=== PATIENT | female | born 1945 | race Caucasian/White ===

== ENCOUNTER → 2020-10-07 | Outpatient (CLI) | payer MEDICARE, BC ==
--- NOTE | 2020-10-08 07:41 | US ---
EXAMINATION TYPE: US carotid duplex BILAT DATE OF EXAM: 10/07/2020 COMPARISON: NONE CLINICAL HISTORY: 75-year-old female Occlusion and stenosis of left artery I65.22. EXAM MEASUREMENTS: RIGHT: Peak Systolic Velocity (PSV) cm/sec ----- Right CCA: 116 ----- Right ICA: 124 ----- Right ECA: 141 ICA/CCA ratio: 1.07 RIGHT: End Diastole cm/sec ----- Right CCA: 9.1 ----- Right ICA: 13.0 ----- Right ECA: 0.0 LEFT: Peak Systolic Velocity (PSV) cm/sec ----- Left CCA: 141 ----- Left ICA: 157 ----- Left ECA: 220 ICA/CCA ratio: 1.11 LEFT: End Diastole cm/sec ----- Left CCA: 9.5 ----- Left ICA: 14.8 ----- Left ECA: 0.0 VERTEBRALS (direction of flow): Right Vertebral: Antegrade Left Vertebral: Antegrade Rhythm: Normal Spanish Language Lecturer notes: Moderate plaque bilateral bifurcations. Increased velocities right ECA, left ICA, left ECA IMPRESSION: 1. Mildly increased velocities within the left ICA could reflect a moderate (50-69%) stenosis versus turbulent flow. The latter is favored given normal end-diastolic velocity and ICA/CCA ratio. 2. Elevated velocities left ECA suggesting an underlying stenosis. NASCET criteria was used in interpretation of this exam? Criteria for Assigning % of Stenosis / Diameter reduction (Estimation based on the indirect measurements of the internal carotid artery velocities (ICA PSV). 1. Normal (no stenosis)=ICA PSV < 125 cm/s: ratio < 2.0: ICA EDV<40 cm/s. 2. Less than 50% stenosis=ICA PSV < 125 cm/s: ratio < 2.0: ICA EDV<40 cm/s. 3. 50 to 69% stenosis=ICA PSV of 125 to 230 cm/s: ration 2.0 ? 4.0: ICA EDV 40-100 cm/s. 4. Greater than 70% stenosis to near occlusion= ICA PSV > 230 cm/s: ratio > 4.0: ICA EDV > 100 cm/s. 5. Near occlusion= ICA PSV velocities may be low or undetectable: variable ratio and ICA EDV. 6. Total occlusion=unable to detect flow.
== END | disposition home or self-care (01) ==
LOC: RADUSWWP 16:43
PROVIDERS: ATTEND Family Medicine
DX: I65.22 Occlusion and stenosis of left carotid artery (principal)
CPT/HCPCS: 93880

== ENCOUNTER 2021-06-07 22:07 | Inpatient (IN) | payer BC, MEDICARE ==
[2021-06-07] MEDS ORDERED: DEXTROSE 5% IN WATER 50 ML BAG ONE (22:15)
[2021-06-07] MEDS ORDERED: ATROPINE SULFATE 0.1 MG/ML 10ML SYRINGE ONE (22:15)
[2021-06-07] MEDS ORDERED: AMIODARONE 50 MG/ML 3 ML VIAL IV ONE (22:15)
[2021-06-07] MEDS ORDERED: CALCIUM CHLORIDE 100 MG/ML 10 ML SYRINGE ONE (22:15)
[2021-06-07] MEDS ORDERED: SODIUM BICARB 8.4% 50 ML SYR (1 MEQ/ML) ONE (22:15)
[2021-06-07] MEDS ORDERED: EPINEPHrine 10 ML SYRINGE (0.1 MG/ML) ONE (22:15)
[2021-06-07 22:20] LABS: Glucose,Whole Blood 493 mg/dL (75-99)
[2021-06-07] MEDS ORDERED: SODIUM CHLORIDE 0.9% 1,000 ML IV STA (22:30)
[2021-06-07] MEDS ORDERED: IPRATROPIUM-ALBUTEROL 3 ML NEB INHALATION STA (22:31)
--- NOTE | 2021-06-07 22:32 | ED ---
SOB HPI - General Chief Complaint: Shortness of Breath Stated Complaint: CLARICE Time Seen by Provider: 06/07/21 22:30 Source: EMS, RN notes reviewed, old records reviewed Mode of arrival: EMS Limitations: altered mental status, physical limitation - History of Present Illness Initial Comments: This is a 75-year-old female DF for evaluation. Patient comes in unresponsive unable to provide history. History obtained from EMS. EMS states patient was found to be severely short of breath upon reevaluation. Patient was speaking in one-word sentences and then had a cardiac arrest. Arrest was bradycardic and they brought patient to the emergency department. Here in the ER patient is pulseless with bradycardic PEA MD Complaint: shortness of breath, cough -: hour(s) Radiation: back Severity: moderate Severity scale (1-10): 4 Quality: aching Consistency: constant Improves With: nothing Worsens With: nothing Context: recent URI, recent illness Associated Symptoms: denies other symptoms Treatments Prior to Arrival: none - Related Data Home Medications Medication Instructions Recorded Confirmed Colesevelam [Welchol] 1,250 mg PO BID 10/13/13 06/07/21 Furosemide [Lasix] 40 mg PO DAILY 10/13/13 06/07/21 Insulin Glargine [Lantus] 50 units SQ DAILY 10/13/13 06/07/21 Cyanocobalamin [Vitamin B-12 1,000 mcg IM Q30D 09/28/15 06/07/21 Injection] Ergocalciferol (Vitamin D2) 1,250 mcg PO Q7D 06/07/21 06/07/21 [Drisdol (50,000 Iu)] Insulin Aspart [NovoLOG Flexpen] 20 unit SQ TID-W/MEALS 06/07/21 06/07/21 Allergies Allergy/AdvReac Type Severity Reaction Status Date / Time amlodipine besylate Allergy Unknown Verified 09/28/15 09:12 [From Lotrel] atorvastatin calcium Allergy Unknown Verified 09/28/15 09:12 [From Lipitor] benazepril HCl [From Lotrel] Allergy Unknown Verified 09/28/15 09:12 Beta-Blockers Allergy Unknown Verified 09/28/15 09:12 (Beta-Adrenergic Bloc betaxolol HCl [From Kerlone] Allergy Unknown Verified 09/28/15 09:12 cilostazol [From Pletal] Allergy Unknown Verified 09/28/15 09:12 enalapril maleate Allergy Unknown Verified 09/28/15 09:12 [From Vasotec] enalaprilat dihydrate Allergy Unknown Verified 09/28/15 09:12 [From Vasotec] ezetimibe [From Vytorin] Allergy Unknown Verified 09/28/15 09:12 fluticasone propionate Allergy Unknown Verified 09/28/15 09:12 [From Flonase] fluvastatin sodium Allergy Unknown Verified 09/28/15 09:12 [From Lescol] gabapentin [From Neurontin] Allergy Unknown Verified 09/28/15 09:12 guaifenesin Allergy Unknown Verified 09/28/15 09:12 irbesartan [From Avapro] Allergy Unknown Verified 09/28/15 09:12 levofloxacin [From Levaquin] Allergy Unknown Verified 09/28/15 09:12 niacin Allergy Unknown Verified 09/28/15 09:12 prazosin [Prazosin] Allergy Unknown Verified 09/28/15 09:12 pseudoephedrine Allergy Unknown Verified 09/28/15 09:12 simvastatin [From Vytorin] Allergy Unknown Verified 09/28/15 09:12 Sulfa (Sulfonamide Allergy Unknown Verified 09/28/15 09:12 Antibiotics) sulfamethoxazole Allergy Unknown Verified 09/28/15 09:12 [From Bactrim] trimethoprim [From Bactrim] Allergy Unknown Verified 09/28/15 09:12 Review of Systems ROS Statement: Those systems with pertinent positive or pertinent negative responses have been documented in the HPI. ROS Other: All systems not noted in ROS Statement are negative. Past Medical History Past Medical History: Coronary Artery Disease (CAD), CVA/TIA, Diabetes Mellitus, Hypertension History of Any Multi-Drug Resistant Organisms: None Reported Past Surgical History: Appendectomy, Section, Coronary Bypass/CABG, Tonsillectomy Additional Past Surgical History / Comment(s): carpal tunnel Past Psychological History: No Psychological Hx Reported Smoking Status: Unknown if ever smoked Past Alcohol Use History: None Reported Past Drug Use History: None Reported General Exam General appearance: alert, in no apparent distress Head exam: Present: atraumatic, normocephalic, normal inspection Eye exam: Present: normal appearance, PERRL, EOMI. Absent: scleral icterus, con junctival injection, periorbital swelling ENT exam: Present: normal exam, mucous membranes moist Neck exam: Present: normal inspection. Absent: tenderness, meningismus, lymphadenopathy Respiratory exam: Present: normal lung sounds bilaterally. Absent: respiratory distress, wheezes, rales, rhonchi, stridor Cardiovascular Exam: Present: regular rate, normal rhythm, normal heart sounds. Absent: systolic murmur, diastolic murmur, rubs, gallop, clicks GI/Abdominal exam: Present: soft, normal bowel sounds. Absent: distended, tenderness, guarding, rebound, rigid Extremities exam: Present: normal inspection, full ROM, normal capillary refill. Absent: tenderness, pedal edema, joint swelling, calf tenderness Back exam: Present: normal inspection Neurological exam: Present: alert, oriented X3, CN II-XII intact Psychiatric exam: Present: normal affect, normal mood Skin exam: Present: warm, dry, intact, normal color. Absent: rash Course Vital Signs 06/07/21 06/07/21 06/07/21 22:08 22:30 23:02 Pulse Rate 69 74 74 Respiratory 14 24 Rate Blood Pressure 72/53 127/57 104/58 O2 Sat by Pulse 92 L 85 L 85 L Oximetry 06/07/21 06/07/21 06/08/21 23:30 23:59 00:33 Pulse Rate 83 70 67 Respiratory 22 31 H 18 Rate Blood Pressure 172/80 113/55 107/52 O2 Sat by Pulse 93 L 91 L 91 L Oximetry 06/08/21 00:34 Pulse Rate 67 Respiratory Rate Blood Pressure O2 Sat by Pulse Oximetry - Reevaluation(s) Reevaluation #1: 06/08/21 00:38 Medical record is reviewed 06/08/21 00:38 Patient did have return of spontaneous circulation after about 15 minutes of ACLS protocol Reevaluation #2: 06/08/21 00:38 Patient very labile here in the ER significant fall with CHF with low oxygen despite ventilatory therapy Reevaluation #3: 06/08/21 00:38 Patient family informed results and questions answered - Consultations Consultation #1: Spoke with ICU regarding admission they are agreeable Consultation #2: spoke Consultation #3: Spoke with cardiology regarding cardiac arrests and EKG findings, there were Medical Decision Making - Medical Decision Making 75 female with hypoxic cardiac arrest secondary to CHF. Patient did have 10-15 minutes of ACS protocol here in the emergency department, patient does have spontaneous return of circulation here in the ER. Patient is currently no code. Patient will be admitted ICU for further evaluation management - Lab Data Result diagrams: 06/07/21 22:53 06/07/21 23:02 Lab Results 06/07/21 06/07/21 06/07/21 Range/Units 22:19 22:52 22:53 WBC 13.8 H (3.8-10.6) k/uL RBC 4.55 (3.80-5.40) m/uL Hgb 13.0 (11.4-16.0) gm/dL Hct 45.4 (34.0-46.0) % MCV 99.8 (80.0-100.0) fL MCH 28.5 (25.0-35.0) pg MCHC 28.5 L (31.0-37.0) g/dL RDW 13.3 (11.5-15.5) % Plt Count 169 (150-450) k/uL MPV 9.3 Neutrophils % 75 % Lymphocytes % 20 % Monocytes % 3 % Eosinophils % 0 % Basophils % 0 % Neutrophils # 10.3 H (1.3-7.7) k/uL Lymphocytes # 2.7 (1.0-4.8) k/uL Monocytes # 0.4 (0-1.0) k/uL Eosinophils # 0.0 (0-0.7) k/uL Basophils # 0.0 (0-0.2) k/uL Hypochromasia Marked PT (9.0-12.0) sec INR (<1.2) APTT (22.0-30.0) sec Sample Site Left Brachial ABG pH 7.17 L* (7.35-7.45) ABG pCO2 47 H (35-45) mmHg ABG pO2 64 L (83-108) mmHg ABG HCO3 17 L (21-25) mmol/L ABG Total CO2 19 (19-24) mmol/L ABG O2 Saturation 84.6 L (94-97) % ABG Base Excess -11.4 mmol/L Matthew Test Yes FiO2 100 % Sodium (137-145) mmol/L Potassium (3.5-5.1) mmol/L Chloride (98-107) mmol/L Carbon Dioxide (22-30) mmol/L Anion Gap mmol/L BUN (7-17) mg/dL Creatinine (0.52-1.04) mg/dL Est GFR (CKD-EPI)AfAm (>60 ml/min/1.73 sqM) Est GFR (CKD-EPI)NonAf (>60 ml/min/1.73 sqM) Glucose (74-99) mg/dL POC Glucose (mg/dL) 493 H (75-99) mg/dL POC Glu Chemical Technician ID Torsten Quispe Plasma Lactic Acid [place] (0.7-2.0) mmol/L Calcium (8.4-10.2) mg/dL Phosphorus (2.5-4.5) mg/dL Magnesium (1.6-2.3) mg/dL Total Bilirubin (0.2-1.3) mg/dL AST (14-36) U/L ALT (4-34) U/L Alkaline Phosphatase (38-126) U/L Troponin I (0.000-0.034) ng/mL NT-Pro-B Natriuret Pep pg/mL Total Protein (6.3-8.2) g/dL Albumin (3.5-5.0) g/dL 06/07/21 06/07/21 06/07/21 Range/Units 22:53 23:02 23:02 WBC (3.8-10.6) k/uL RBC (3.80-5.40) m/uL Hgb (11.4-16.0) gm/dL Hct (34.0-46.0) % MCV (80.0-100.0) fL MCH (25.0-35.0) pg MCHC (31.0-37.0) g/dL RDW (11.5-15.5) % Plt Count (150-450) k/uL MPV Neutrophils % % Lymphocytes % % Monocytes % % Eosinophils % % Basophils % % Neutrophils # (1.3-7.7) k/uL Lymphocytes # (1.0-4.8) k/uL Monocytes # (0-1.0) k/uL Eosinophils # (0-0.7) k/uL Basophils # (0-0.2) k/uL Hypochromasia PT 13.7 H (9.0-12.0) sec INR 1.3 H (<1.2) APTT 25.8 (22.0-30.0) sec Sample Site ABG pH (7.35-7.45) ABG pCO2 (35-45) mmHg ABG pO2 (83-108) mmHg ABG HCO3 (21-25) mmol/L ABG Total CO2 (19-24) mmol/L ABG O2 Saturation (94-97) % ABG Base Excess mmol/L Matthew Test FiO2 % Sodium 139 (137-145) mmol/L Potassium 5.7 H (3.5-5.1) mmol/L Chloride 102 (98-107) mmol/L Carbon Dioxide 16 L (22-30) mmol/L Anion Gap 21 mmol/L BUN 21 H (7-17) mg/dL Creatinine 1.23 H (0.52-1.04) mg/dL Est GFR (CKD-EPI)AfAm 49 (>60 ml/min/1.73 sqM) Est GFR (CKD-EPI)NonAf 43 (>60 ml/min/1.73 sqM) Glucose 479 H (74-99) mg/dL POC Glucose (mg/dL) (75-99) mg/dL POC Glu Chemical Technician ID Plasma Lactic Acid [place] (0.7-2.0) mmol/L Calcium 10.8 H (8.4-10.2) mg/dL Phosphorus 9.6 H* (2.5-4.5) mg/dL Magnesium 2.7 H (1.6-2.3) mg/dL Total Bilirubin 0.7 (0.2-1.3) mg/dL AST 172 H (14-36) U/L ALT 99 H (4-34) U/L Alkaline Phosphatase 73 (38-126) U/L Troponin I 0.459 H* (0.000-0.034) ng/mL NT-Pro-B Natriuret Pep pg/mL Total Protein 5.6 L (6.3-8.2) g/dL Albumin 3.0 L (3.5-5.0) g/dL 06/07/21 06/07/21 Range/Units 23:02 23:02 WBC (3.8-10.6) k/uL RBC (3.80-5.40) m/uL Hgb (11.4-16.0) gm/dL Hct (34.0-46.0) % MCV (80.0-100.0) fL MCH (25.0-35.0) pg MCHC (31.0-37.0) g/dL RDW (11.5-15.5) % Plt Count (150-450) k/uL MPV Neutrophils % % Lymphocytes % % Monocytes % % Eosinophils % % Basophils % % Neutrophils # (1.3-7.7) k/uL Lymphocytes # (1.0-4.8) k/uL Monocytes # (0-1.0) k/uL Eosinophils # (0-0.7) k/uL Basophils # (0-0.2) k/uL Hypochromasia PT (9.0-12.0) sec INR (<1.2) APTT (22.0-30.0) sec Sample Site ABG pH (7.35-7.45) ABG pCO2 (35-45) mmHg ABG pO2 (83-108) mmHg ABG HCO3 (21-25) mmol/L ABG Total CO2 (19-24) mmol/L ABG O2 Saturation (94-97) % ABG Base Excess mmol/L Matthew Test FiO2 % Sodium (137-145) mmol/L Potassium (3.5-5.1) mmol/L Chloride (98-107) mmol/L Carbon Dioxide (22-30) mmol/L Anion Gap mmol/L BUN (7-17) mg/dL Creatinine (0.52-1.04) mg/dL Est GFR (CKD-EPI)AfAm (>60 ml/min/1.73 sqM) Est GFR (CKD-EPI)NonAf (>60 ml/min/1.73 sqM) Glucose (74-99) mg/dL POC Glucose (mg/dL) (75-99) mg/dL POC Glu Chemical Technician ID Plasma Lactic Acid [place] 19.4 H* (0.7-2.0) mmol/L Calcium (8.4-10.2) mg/dL Phosphorus (2.5-4.5) mg/dL Magnesium (1.6-2.3) mg/dL Total Bilirubin (0.2-1.3) mg/dL AST (14-36) U/L ALT (4-34) U/L Alkaline Phosphatase (38-126) U/L Troponin I (0.000-0.034) ng/mL NT-Pro-B Natriuret Pep 4900 pg/mL Total Protein (6.3-8.2) g/dL Albumin (3.5-5.0) g/dL - EKG Data -: EKG Interpreted by Me - Radiology Data Radiology results: report reviewed (Chest x-ray shows significant CHF), image reviewed Critical Care Time Critical Care Time: Yes Total Critical Care Time: 65 Disposition Clinical Impression: Congestive heart failure, Acute pulmonary edema, DKA (diabetic ketoacidosis), Hyperglycemia, Hyperkalemia, Acute respiratory distress syndrome in adult, Hypoxia Disposition: ADMITTED IP TO THIS [facility] Condition: Critical Is patient prescribed a controlled substance at d/c from ED?: No
[2021-06-07] MEDS ORDERED: HEPARIN SODIUM 1,000 UN/ML (10ML VL) IV ONE (22:48)
[2021-06-07] MEDS ORDERED: NITROGLYCERIN SL TABS 0.4 MG TAB SUBLINGUAL PRN (22:48)
--- NOTE | 2021-06-07 22:49 | XR ---
EXAMINATION TYPE: XR chest 1V portable DATE OF EXAM: 06/07/2021 COMPARISON: 09/28/2015 HISTORY: Respiratory failure TECHNIQUE: Single view FINDINGS: Endotracheal tube is 3.5 cm from the justin. There is moderately severe pulmonary airspace edema. There are sternal wires. Heart is enlarged. IMPRESSION: Pulmonary edema and cardiomegaly consistent with heart failure which is a change compared to old exam.
[2021-06-07 22:54] LABS: ABG Base Excess -11.4 mmol/L; ABG HCO3 17 mmol/L (21-25); ABG Oxygen Saturation 84.6 % (94-97); ABG PCO2 47 mmHg (35-45); ABG PO2 64 mmHg (83-108); ABG TCO2 19 mmol/L (19-24); Allen Test Performed? Yes
[2021-06-07 23:02] LABS: ABG PH 7.17 (7.35-7.45)
[2021-06-07 23:09] LABS: Basophils % (A) 0 %; Eosinophils % (A) 0 %; HCT 45.4 % (34.0-46.0); Hypochromasia Marked; Lymphocytes # (A) 2.7 k/uL (1.0-4.8); Lymphocytes % (A) 20 %; MCH 28.5 pg (25.0-35.0); MCHC 28.5 g/dL (31.0-37.0); MCV 99.8 fL (80.0-100.0); Mean Platelet Volume 9.3; Monocytes # (A) 0.4 k/uL (0-1.0); Monocytes % (A) 3 %; Neutrophils # (A) 10.3 k/uL (1.3-7.7); Neutrophils % (A) 75 %; Platelet Count 169 k/uL (150-450); RBC 4.55 m/uL (3.80-5.40); RDW 13.3 % (11.5-15.5); WBC 13.8 k/uL (3.8-10.6)
[2021-06-07] MEDS ORDERED: MIDAZOLAM 1 MG/ML 5 ML VIAL IV STA (23:09)
[2021-06-07] MEDS ORDERED: MIDAZOLAM HCL 50 MG in SODIUM CHLORIDE 0.9% 40 ML IV SCH (23:15)
[2021-06-07] MEDS: HEPARIN SOD,PORK IN 0.45% NACL 25,000 UNIT in 0.45% NACL 1 250ML.BAG IV SCH (23:19)
--- NOTE | 2021-06-07 23:36 | XR ---
EXAMINATION TYPE: XR chest 1V confirm line [facility] DATE OF EXAM: 06/07/2021 COMPARISON: Today HISTORY: Check tube placement TECHNIQUE: FINDINGS: Endotracheal tube is 4 cm from the justin. There is moderate pulmonary edema. There is naso gastric tube in the stomach. There are sternal wires. IMPRESSION: Moderately severe pulmonary edema without change.
[2021-06-07 23:53] LABS: Potassium 5.7 mmol/L (3.5-5.1)
[2021-06-07 23:54] LABS: Calcium 10.8 mg/dL (8.4-10.2); Magnesium 2.7 mg/dL (1.6-2.3); Total Bilirubin 0.7 mg/dL (0.2-1.3); Total Protein 5.6 g/dL (6.3-8.2)
[2021-06-08] MEDS ORDERED: NITROGLYCERIN OINT 1 INCH/GM PACKET TOPICAL SCH
[2021-06-08] MEDS ORDERED: NALOXONE 0.4 MG/ML 1 ML VIAL IV PRN (00:02)
[2021-06-08] MEDS ORDERED: INSULIN REGULAR 100 UNIT/ML VIAL (IV) IV ONE (00:02)
[2021-06-08 00:09] LABS: Phosphorus 9.6 mg/dL (2.5-4.5)
[2021-06-08 00:14] LABS: INR 1.3 (<1.2); Partial Thromboplastin Time 25.8 sec (22.0-30.0); Prothrombin Time 13.7 sec (9.0-12.0)
[2021-06-08 01:42] LABS: Glucose,Whole Blood 445 mg/dL (75-99)
[2021-06-08] MEDS ORDERED: propofoL 100 ML IV ONE (01:58)
[2021-06-08 02:00] LABS: Glucose,Whole Blood 448 mg/dL (75-99)
[2021-06-08] MEDS: LACTATED RINGERS 1,000 ML IV SCH ×16 (02:00→09:40)
[2021-06-08] MEDS ORDERED: ACETAMINOPHEN TAB 325 MG TAB PO PRN (02:22)
[2021-06-08 04:33] LABS: Glucose,Whole Blood 485 mg/dL (75-99)
[2021-06-08] MEDS: INSULIN ASPART (NovoLOG) 100 UNIT/ML VIAL SQ SCH ×10 (04:57→22:26)
[2021-06-08 05:27] LABS: Calcium 8.4 mg/dL (8.4-10.2); Potassium 4.7 mmol/L (3.5-5.1)
[2021-06-08 05:59] LABS: ABG Base Excess -2.7 mmol/L; ABG HCO3 21 mmol/L (21-25); ABG Oxygen Saturation 99.6 % (94-97); ABG PCO2 30 mmHg (35-45); ABG PH 7.46 (7.35-7.45); ABG PO2 193 mmHg (83-108); ABG TCO2 22 mmol/L (19-24); Allen Test Performed? Yes
[2021-06-08 06:08] LABS: Glucose,Whole Blood 476 mg/dL (75-99)
[2021-06-08] MEDS ORDERED: IPRATROPIUM-ALBUTEROL 3 ML NEB INHALATION SCH (08:00)
[2021-06-08] MEDS ORDERED: SODIUM CHLORIDE 0.9% 1,000 ML IV ONE (08:11)
[2021-06-08] MEDS: IPRATROPIUM-ALBUTEROL 3 ML NEB INHALATION SCH ×4 (08:29→19:26)
--- NOTE | 2021-06-08 08:31 | XR ---
EXAMINATION TYPE: XR chest 1V portable DATE OF EXAM: 06/08/2021 COMPARISON: 06/07/2021 INDICATION: Tube placement TECHNIQUE: Single frontal view of the chest is obtained. FINDINGS: The heart size is normal. The pulmonary vasculature is somewhat prominent. Views increased lung markings are present. This has improved from comparison. Small right and minimal left pleural effusion may remain present. Endotracheal tube tip is above the justin. Nasogastric tube transverses the thorax. IMPRESSION: 1. Improving bilateral lung infiltrates. 2. Small bilateral pleural effusions. 3. Lines and catheters discussed above.
[2021-06-08 08:50] LABS: Glucose,Whole Blood 419 mg/dL (75-99)
[2021-06-08] MEDS: SODIUM CHLORIDE 0.9% 1,000 ML IV SCH ×2 (08:51→20:22)
[2021-06-08] MEDS: ASPIRIN 325 MG TAB PO SCH (08:51)
[2021-06-08] MEDS: PANTOPRAZOLE 40 MG/10 ML VIAL IV SCH (08:51)
--- NOTE | 2021-06-08 08:54 | P.CRDCN ---
History of Present Illness History of present illness: HISTORY OF PRESENTING ILLNESS Patient is a 75-year-old female with a history of diabetes mellitus type 1, coronary artery disease status post CABG 2000, hypertension, hyperlipidemia. Patient currently intubated and sedated and history is supplied the chart. Apparently patient was extremely short of breath speaking one-word sentences and then had a cardiac arrest and became bradycardic. By the time patient came to emergency department patient was still noted to be PEA and apparently another 15 minutes of CPR was performed with eventual ROSC. Patient has been on a heparin drip in ICU as well as propofol and otherwise remains on ventilator with FiO2 55% and a PEEP of 10. There is no report of any chest pain or pressure noted before and appears mainly shortness breath. Initial EKG shows diffuse ST depressions in the lateral leads. Initial blood work shows white blood cell co unt 13.8, hemoglobin 13.0, INR 1.3, potassium 5.7, creatinine 1.2, lactic acid 19, AST 172, ALT 99, calcium 10.8, troponin 0.45, proBNP 4900, repeat lactic acid 4.9, troponin 5.8. Family made patient DO NOT RESUSCITATE currently. REVIEW OF SYSTEMS At the time of my exam: Unable to assess secondary to patient intubated and sedated PHYSICAL EXAMINATION Vital signs reviewed. CONSTITUTIONAL: No apparent distress, ill appearing, intubated and sedated HEENT: Head is normocephalic. Pupils are equal, round. Sclerae anicteric. Mucous membranes of the mouth are moist. No JVD. No carotid bruit. +ETT CHEST EXAMINATION: Lungs are clear to auscultation. No chest wall tenderness is noted on palpation or with deep breathing. HEART EXAMINATION: Regular rate and rhythm. S1, S2 heard. No murmurs, gallops or rub. ABDOMEN: Soft, nontender. Positive bowel sounds. EXTREMITIES: 2+ peripheral pulses, no lower extremity edema and no calf tenderness. NEUROLOGIC EXAMINATION: Patient is sedated ASSESSMENT 1. Cardiac arrest of unclear etiology. Possible type I ID versus primary respiratory etiology. 15 minutes of downtime and emergency department plus time and EMS 2. Non-STEMI unclear type I versus type II mechanism 3. Coronary artery disease with history of CABG 4. Diabetes mellitus type 1 with uncontrolled glucose 5. Altered mental status, rule out anoxic brain injury 6. Bradycardia likely related to cardiac arrest, currently improved PLAN Patient had a cardiac arrest of unclear etiology. Patient with prolonged downtime however currently appears somewhat stabilized. Continue with aspirin, heparin. No beta amy given bradycardia and hypotension. Continue supportive care. Monitor for any neurologic recovery however prognosis guarded given prolonged downtime. Past Medical History Past Medical History: Coronary Artery Disease (CAD), CVA/TIA, Diabetes Mellitus, Hypertension History of Any Multi-Drug Resistant Organisms: None Reported Past Surgical History: Appendectomy, Section, Coronary Bypass/CABG, Tonsillectomy Additional Past Surgical History / Comment(s): carpal tunnel Past Psychological History: No Psychological Hx Reported Smoking Status: Unknown if ever smoked Past Alcohol Use History: None Reported Past Drug Use History: None Reported Medications and Allergies Home Medications Medication Instructions Recorded Confirmed Type Colesevelam [Welchol] 1,250 mg PO BID 10/13/13 06/07/21 History Furosemide [Lasix] 40 mg PO DAILY 10/13/13 06/07/21 History Insulin Glargine [Lantus] 50 units SQ DAILY 10/13/13 06/07/21 History Cyanocobalamin [Vitamin B-12 1,000 mcg IM Q30D 09/28/15 06/07/21 History Injection] Ergocalciferol (Vitamin D2) 1,250 mcg PO Q7D 06/07/21 06/07/21 History [Drisdol (50,000 Iu)] Insulin Aspart [NovoLOG Flexpen] 20 unit SQ TID-W/MEALS 06/07/21 06/07/21 History amLODIPine [Norvasc] 5 mg PO DAILY 06/08/21 06/08/21 History Allergies Allergy/AdvReac Type Severity Reaction Status Date / Time amlodipine besylate Allergy Unknown Verified 06/08/21 08:30 [From Lotrel] atorvastatin calcium Allergy Unknown Verified 06/08/21 08:30 [From Lipitor] benazepril HCl [From Lotrel] Allergy Unknown Verified 06/08/21 08:30 Beta-Blockers Allergy Unknown Verified 06/08/21 08:30 (Beta-Adrenergic Bloc betaxolol HCl [From Kerlone] Allergy Unknown Verified 06/08/21 08:30 chlorpheniramine Allergy Unknown Verified 06/08/21 08:34 [From DURAHIST] cilostazol [From Pletal] Allergy Unknown Verified 06/08/21 08:30 enalapril maleate Allergy Unknown Verified 06/08/21 08:30 [From Vasotec] enalaprilat dihydrate Allergy Unknown Verified 06/08/21 08:30 [From Vasotec] ezetimibe [From Vytorin] Allergy Unknown Verified 06/08/21 08:30 fluticasone propionate Allergy Unknown Verified 06/08/21 08:30 [From Flonase] fluvastatin sodium Allergy Unknown Verified 06/08/21 08:30 [From Lescol] gabapentin [From Neurontin] Allergy Unknown Verified 06/08/21 08:30 guaifenesin Allergy Unknown Verified 06/08/21 08:30 irbesartan [From Avapro] Allergy Unknown Verified 06/08/21 08:30 levofloxacin [From Levaquin] Allergy Unknown Verified 06/08/21 08:30 metoprolol [From Lopressor] Allergy Unknown Verified 06/08/21 08:34 niacin Allergy Unknown Verified 06/08/21 08:30 nystatin Allergy Unknown Verified 06/08/21 08:34 prazosin [Prazosin] Allergy Unknown Verified 06/08/21 08:30 pseudoephedrine Allergy Unknown Verified 06/08/21 08:30 scopolamine [From DURAHIST] Allergy Unknown Verified 06/08/21 08:34 simvastatin [From Vytorin] Allergy Unknown Verified 06/08/21 08:30 Sulfa (Sulfonamide Allergy Unknown Verified 06/08/21 08:30 Antibiotics) sulfamethoxazole Allergy Unknown Verified 06/08/21 08:30 [From Bactrim] trimethoprim [From Bactrim] Allergy Unknown Verified 06/08/21 08:30 Physical Exam Vitals: Vital Signs Temp Pulse Resp BP Pulse Ox 06/08/21 08:16 64 06/08/21 07:59 60 06/08/21 07:00 58 L 26 H 87/44 98 06/08/21 06:45 98.9 F 61 0 L 90/47 98 06/08/21 06:30 61 6 L 107/47 98 06/08/21 06:15 59 L 26 H 110/49 97 06/08/21 06:00 62 26 H 110/52 100 06/08/21 05:45 61 26 H 90/45 100 06/08/21 05:30 54 L 26 H 73/38 99 06/08/21 05:15 50 L 26 H 74/38 100 06/08/21 05:00 98.9 F 51 L 26 H 74/38 99 06/08/21 04:45 53 L 26 H 77/40 99 06/08/21 04:40 52 L 26 H 77/40 99 06/08/21 04:30 51 L 26 H 75/41 99 06/08/21 04:20 55 L 26 H 78/41 99 06/08/21 04:10 56 L 262 H 81/39 99 06/08/21 04:00 56 L 26 H 80/45 99 06/08/21 03:50 56 L 26 H 80/45 99 06/08/21 03:40 58 L 26 H 84/44 99 06/08/21 03:30 59 L 26 H 75/39 99 06/08/21 03:20 58 L 26 H 75/39 99 06/08/21 03:10 56 L 26 H 68/36 100 06/08/21 03:00 55 L 26 H 97/46 99 06/08/21 02:50 59 L 26 H 97/46 99 06/08/21 02:40 60 26 H 97/46 100 06/08/21 02:30 62 26 H 97/46 100 06/08/21 02:20 65 26 H 97/46 99 06/08/21 02:10 68 26 H 97/46 95 06/08/21 02:00 70 26 H 06/08/21 01:58 68 31 H 06/08/21 01:00 68 22 123/74 95 06/08/21 00:50 63 06/08/21 00:34 67 06/08/21 00:33 67 18 107/52 91 L 06/07/21 23:59 70 31 H 113/55 91 L 06/07/21 23:30 83 22 172/80 93 L 06/07/21 23:02 74 24 104/58 85 L 06/07/21 22:30 74 127/57 85 L 06/07/21 22:08 69 14 72/53 92 L Intake and Output 06/07/21 06/08/21 06/08/21 22:59 06:59 14:59 Intake Total 2003.343 Output Total 60 10 Balance 1944.343 -10 Intake: Intake, IV Titration 2003.343 Amount Lactated Ringers 1,000 ml 2000 @ 999 mls/hr IV .Q1H1M [facility] Rx#:[id number] propofoL 1,000 mg In 4.343 Empty Bag 1 bag @ 5 MCG/ KG/MIN 1.551 mls/hr IV . Q24H [facility] Rx#:[id number] Output: Urine 60 10 Uretheral ([place]) 0 Other: Voiding Method Indwelling Catheter Weight 51.71 kg 60.6 kg Results 06/07/21 22:53 06/08/21 04:59 Cardiac Enzymes 06/07/21 06/07/21 06/08/21 Range/Units 22:53 23:02 04:48 AST 172 H (14-36) U/L Troponin I 0.459 H* 5.880 H* (0.000-0.034) ng/mL Coagulation 06/07/21 06/08/21 Range/Units 23:02 04:48 PT 13.7 H (9.0-12.0) sec APTT 25.8 44.4 H (22.0-30.0) sec CBC 06/07/21 Range/Units 22:53 WBC 13.8 H (3.8-10.6) k/uL RBC 4.55 (3.80-5.40) m/uL Hgb 13.0 (11.4-16.0) gm/dL Hct 45.4 (34.0-46.0) % Plt Count 169 (150-450) k/uL Comprehensive Metabolic Panel 06/07/21 06/08/21 Range/Units 23:02 04:59 Sodium 139 132 L (137-145) mmol/L Potassium 5.7 H 4.7 (3.5-5.1) mmol/L Chloride 102 104 (98-107) mmol/L Carbon Dioxide 16 L 20 L (22-30) mmol/L BUN 21 H 26 H (7-17) mg/dL Creatinine 1.23 H 1.05 H (0.52-1.04) mg/dL Glucose 479 H 476 H (74-99) mg/dL Calcium 10.8 H 8.4 (8.4-10.2) mg/dL AST 172 H (14-36) U/L ALT 99 H (4-34) U/L Alkaline Phosphatase 73 (38-126) U/L Total Protein 5.6 L (6.3-8.2) g/dL Albumin 3.0 L (3.5-5.0) g/dL Current Medications Generic Name Dose Route Start Last Admin Trade Name Freq PRN Reason Stop Dose Admin Albuterol/Ipratropium 3 ml 06/08/21 08:00 06/08/21 08:29 Ipratropium-Albuterol 3 Ml Neb INHALATION Not Given RT-Q4H [facility] Aspirin 325 mg 06/08/21 09:00 Aspirin 325 Mg Tab PO DAILY [facility] Heparin Sodium/Sodium Chloride 250 mls @ 6.205 mls/hr 06/07/21 23:00 06/07/21 23:19 25,000 unit/ Sodium Chloride IV 12 units/kg/hr .Q24H [facility] 6.205 mls/hr Administration Protocol 12 UNITS/KG/HR Propofol 1,000 mg/ IV Solution 100 mls @ 1.551 mls/hr 06/08/21 03:00 06/08/21 06:18 IV 20 mcg/kg/min .Q24H [facility] 6.205 mls/hr Titration Protocol 5 MCG/KG/MIN Lactated Ringer's 1,000 mls @ 999 mls/hr 06/08/21 02:45 06/08/21 08:33 Lactated Ringers IV 999 mls/hr .Q1H1M [facility] Administration Lactated Ringer's 1,000 mls @ 999 mls/hr 06/08/21 05:15 06/08/21 08:34 Lactated Ringers IV Not Given .Q1H1M [facility] Sodium Chloride 1,000 mls @ 999 mls/hr 06/08/21 08:11 Saline 0.9% IV 06/08/21 09:11 .Q1H1M ONE Sodium Chloride 1,000 mls @ 75 mls/hr 06/08/21 08:15 Saline 0.9% IV .[id number] [facility] Insulin Aspart 0 unit 06/08/21 04:00 06/08/21 06:09 Insulin Aspart (Novolog) 100 Unit/Ml Vial SQ 8 unit Q2HR [facility] Administration Protocol Morphine Sulfate 4 mg 06/08/21 00:02 Morphine Sulfate 4 Mg/Ml Syringe IV Q4HR PRN Pain Scale 8 to 10 Naloxone HCl 0.2 mg 06/08/21 00:02 Naloxone 0.4 Mg/Ml 1 Ml Vial IV Q2M PRN Opioid Reversal Pantoprazole Sodium 40 mg 06/08/21 09:00 Pantoprazole 40 Mg/10 Ml Vial IV DAILY [facility] Intake and Output 06/07/21 06/08/21 06/08/21 22:59 06:59 14:59 Intake Total 2003.343 Output Total 60 10 Balance 1944.343 -10 Intake: Intake, IV Titration 2003.343 Amount Lactated Ringers 1,000 ml 2000 @ 999 mls/hr IV .Q1H1M [facility] Rx#:[id number] propofoL 1,000 mg In 4.343 Empty Bag 1 bag @ 5 MCG/ KG/MIN 1.551 mls/hr IV . Q24H [facility] Rx#:[id number] Output: Urine 60 10 Uretheral ([place]) 0 Other: Voiding Method Indwelling Catheter Weight 51.71 kg 60.6 kg 06/07/21 22:53 06/08/21 04:59
[2021-06-08 10:01] LABS: Glucose,Whole Blood 364 mg/dL (75-99)
--- NOTE | 2021-06-08 10:10 | P.CNPUL ---
History of Present Illness Consult date: 06/08/21 Requesting physician: Sharon Harris Reason for consult: dyspnea, hypoxemia, abnormal CXR/CT Chief complaint: Cardiopulmonary arrest. History of present illness: Pulmonary consult dated 06/08/2021. 75-year-old female who apparently was brought into the emergency room by EMS. The patient had mental status changes, with profoundly short of breath, and a chest x-ray which showed nearly complete white out of both lungs, and had severe bradycardia. The patient subsequently had a cardiac arrest in the ER. He was intubated in the ER, and she had about a 10 minute or so resuscitation. She apparently had pulseless electrical activity in the emergency room, as well as bradycardia. I did speak to the ER physician last night. Initially, the patient was a DO NOT RESUSCITATE patient. Apparently after speaking to the daughter, today, the nurse stated that the daughter wanted the patient to be a full code. I did speak to the daughter on the phone, who spoke to her brother, and her father, and the patient was made a DO NOT RESUSCITATE. The patient has a history of diabetes, hyperlipidemia, CAD, CVA, hypertension, and previous bypass surgery. The patient is currently on the ventilator. She is on volume assist control mode, rate 26, tidal volume 400, FiO2 60%, EPAP of 10. Blood gases show pO2 of 193, pCO2 of 30, and a pH is 7.46. These blood gases were done on 100%. The patient is on propofol at 20 mcg/kg/m, and heparin via weightbased protocol. The patient is also getting saline at 75 mL an hour. Laboratory data includes a white count 13.8, hemoglobin 13, hematocrit 45.4, and platelet count 169,000. PTT is 44.4. Sodium 132, potassium 4.7, chlorides 104, CO2 20, anion gap 8, BUN 26, and creatinine 1.05. Initial glucose was 476. The lactic acid went from 19.4 down to 4.5. The phosphorus was 9.6, the repeat was 5.2. N-terminal proBNP was 4900. Troponins were 0.459 and 5.880. AST was 172. ALT was 99. The initial chest x-ray showed diffuse bilateral infiltrates consistent with fluid overload/CHF, but the more recent chest x-ray shows some improvement in the volume status. Review of Systems REVIEW OF SYSTEMS: CONSTITUTIONAL: [Negative.] NEUROLOGIC: Mental status changes. HEENT: [ Negative.] CARDIAC: Bradycardia, and cardiac arrest. PULMONARY: Profound shortness of breath. GI: [Negative.] : [Negative.] RHEUMATOLOGIC: [ Negative.] IMMUNOLOGIC: [ Negative.] ENDOCRINE: [Negative. ] DERMATOLOGIC: [Negative.] Past Medical History Past Medical History: Coronary Artery Disease (CAD), CVA/TIA, Diabetes Mellitus, Hypertension History of Any Multi-Drug Resistant Organisms: None Reported Past Surgical History: Appendectomy, Section, Coronary Bypass/CABG, Tonsillectomy Additional Past Surgical History / Comment(s): carpal tunnel Past Psychological History: No Psychological Hx Reported Smoking Status: Unknown if ever smoked Past Alcohol Use History: None Reported Past Drug Use History: None Reported Medications and Allergies Home Medications Medication Instructions Recorded Confirmed Type Colesevelam [Welchol] 1,250 mg PO BID 10/13/13 06/07/21 History Furosemide [Lasix] 40 mg PO DAILY 10/13/13 06/07/21 History Insulin Glargine [Lantus] 50 units SQ DAILY 10/13/13 06/07/21 History Cyanocobalamin [Vitamin B-12 1,000 mcg IM Q30D 09/28/15 06/07/21 History Injection] Ergocalciferol (Vitamin D2) 1,250 mcg PO Q7D 06/07/21 06/07/21 History [Drisdol (50,000 Iu)] Insulin Aspart [NovoLOG Flexpen] 20 unit SQ TID-W/MEALS 06/07/21 06/07/21 History amLODIPine [Norvasc] 5 mg PO DAILY 06/08/21 06/08/21 History Allergies Allergy/AdvReac Type Severity Reaction Status Date / Time amlodipine besylate Allergy Unknown Verified 06/08/21 08:30 [From Lotrel] atorvastatin calcium Allergy Unknown Verified 06/08/21 08:30 [From Lipitor] benazepril HCl [From Lotrel] Allergy Unknown Verified 06/08/21 08:30 Beta-Blockers Allergy Unknown Verified 06/08/21 08:30 (Beta-Adrenergic Bloc betaxolol HCl [From Kerlone] Allergy Unknown Verified 06/08/21 08:30 chlorpheniramine Allergy Unknown Verified 06/08/21 08:34 [From DURAHIST] cilostazol [From Pletal] Allergy Unknown Verified 06/08/21 08:30 enalapril maleate Allergy Unknown Verified 06/08/21 08:30 [From Vasotec] enalaprilat dihydrate Allergy Unknown Verified 06/08/21 08:30 [From Vasotec] ezetimibe [From Vytorin] Allergy Unknown Verified 06/08/21 08:30 fluticasone propionate Allergy Unknown Verified 06/08/21 08:30 [From Flonase] fluvastatin sodium Allergy Unknown Verified 06/08/21 08:30 [From Lescol] gabapentin [From Neurontin] Allergy Unknown Verified 06/08/21 08:30 guaifenesin Allergy Unknown Verified 06/08/21 08:30 irbesartan [From Avapro] Allergy Unknown Verified 06/08/21 08:30 levofloxacin [From Levaquin] Allergy Unknown Verified 06/08/21 08:30 metoprolol [From Lopressor] Allergy Unknown Verified 06/08/21 08:34 niacin Allergy Unknown Verified 06/08/21 08:30 nystatin Allergy Unknown Verified 06/08/21 08:34 prazosin [Prazosin] Allergy Unknown Verified 06/08/21 08:30 pseudoephedrine Allergy Unknown Verified 06/08/21 08:30 scopolamine [From DURAHIST] Allergy Unknown Verified 06/08/21 08:34 simvastatin [From Vytorin] Allergy Unknown Verified 06/08/21 08:30 Sulfa (Sulfonamide Allergy Unknown Verified 06/08/21 08:30 Antibiotics) sulfamethoxazole Allergy Unknown Verified 06/08/21 08:30 [From Bactrim] trimethoprim [From Bactrim] Allergy Unknown Verified 06/08/21 08:30 Physical Exam Osteopathic Statement: *. No significant issues noted on an osteopathic structural exam other than those noted in the History and Physical/Consult. Vitals: Vital Signs Temp Pulse Resp BP Pulse Ox 06/08/21 08:16 64 06/08/21 07:59 60 06/08/21 07:00 58 L 26 H 87/44 98 06/08/21 06:45 98.9 F 61 0 L 90/47 98 06/08/21 06:30 61 6 L 107/47 98 06/08/21 06:15 59 L 26 H 110/49 97 06/08/21 06:00 62 26 H 110/52 100 06/08/21 05:45 61 26 H 90/45 100 06/08/21 05:30 54 L 26 H 73/38 99 06/08/21 05:15 50 L 26 H 74/38 100 06/08/21 05:00 98.9 F 51 L 26 H 74/38 99 06/08/21 04:45 53 L 26 H 77/40 99 06/08/21 04:40 52 L 26 H 77/40 99 06/08/21 04:30 51 L 26 H 75/41 99 06/08/21 04:20 55 L 26 H 78/41 99 06/08/21 04:10 56 L 262 H 81/39 99 06/08/21 04:00 56 L 26 H 80/45 99 06/08/21 03:50 56 L 26 H 80/45 99 06/08/21 03:40 58 L 26 H 84/44 99 06/08/21 03:30 59 L 26 H 75/39 99 06/08/21 03:20 58 L 26 H 75/39 99 06/08/21 03:10 56 L 26 H 68/36 100 06/08/21 03:00 55 L 26 H 97/46 99 06/08/21 02:50 59 L 26 H 97/46 99 06/08/21 02:40 60 26 H 97/46 100 06/08/21 02:30 62 26 H 97/46 100 06/08/21 02:20 65 26 H 97/46 99 06/08/21 02:10 68 26 H 97/46 95 06/08/21 02:00 70 26 H 06/08/21 01:58 68 31 H 06/08/21 01:00 68 22 123/74 95 06/08/21 00:50 63 06/08/21 00:34 67 06/08/21 00:33 67 18 107/52 91 L 06/07/21 23:59 70 31 H 113/55 91 L 06/07/21 23:30 83 22 172/80 93 L 06/07/21 23:02 74 24 104/58 85 L 06/07/21 22:30 74 127/57 85 L 06/07/21 22:08 69 14 72/53 92 L Intake and Output 06/07/21 06/08/21 06/08/21 22:59 06:59 14:59 Intake Total 2003.343 Output Total 60 10 Balance 1944.343 -10 Intake: Intake, IV Titration 2003.343 Amount Lactated Ringers 1,000 ml 2000 @ 999 mls/hr IV .Q1H1M [facility] Rx#:[id number] propofoL 1,000 mg In 4.343 Empty Bag 1 bag @ 5 MCG/ KG/MIN 1.551 mls/hr IV . Q24H [facility] Rx#:[id number] Output: Urine 60 10 Uretheral ([place]) 0 Other: Voiding Method Indwelling Catheter # Bowel Movements 0 Weight 51.71 kg 60.6 kg No acute distress, sedated, and intubated with an orally placed endotracheal tube and NG tube. HEENT examination is grossly unremarkable. Neck supple. Full range of motion. No adenopathy thyromegaly or neck vein distention. Cardiovascular examination reveals regular rhythm rate. S1-S2 normal. No S3 or S4. No discernible murmur noted. Heart rate is 64 bpm. Heart sounds are distant. Lungs reveal diffuse bilateral rhonchi. No wheezes or crackles. Breath sounds equal bilaterally. Abdomen soft without bowel sounds. No masses or tenderness. Extremities are intact. No cyanosis clubbing or edema. Skin is without rash or lesion. Neurologic examination cannot be adequately assessed as the patient's currently sedated. Results - Laboratory Findings CBC and BMP: 06/07/21 22:53 06/08/21 04:59 ABG ABG pH 7.46 (7.35-7.45) H 06/08/21 05:55 ABG pCO2 30 mmHg (35-45) L 06/08/21 05:55 ABG pO2 193 mmHg (83-108) H 06/08/21 05:55 ABG O2 Saturation 99.6 % (94-97) H 06/08/21 05:55 PT/INR, D-dimer PT 13.7 sec (9.0-12.0) H 06/07/21 23:02 INR 1.3 (<1.2) H 06/07/21 23:02 Abnormal lab findings: Abnormal Labs 06/07/21 06/07/21 06/07/21 22:19 22:52 22:53 WBC 13.8 H MCHC 28.5 L Neutrophils # 10.3 H PT INR APTT ABG pH 7.17 L* ABG pCO2 47 H ABG pO2 64 L ABG HCO3 17 L ABG O2 Saturation 84.6 L Sodium Potassium Carbon Dioxide BUN Creatinine Glucose POC Glucose (mg/dL) 493 H Plasma Lactic Acid [place] Calcium Phosphorus Magnesium AST ALT Troponin I Total Protein Albumin 06/07/21 06/07/21 06/07/21 22:53 23:02 23:02 WBC MCHC Neutrophils # PT 13.7 H INR 1.3 H APTT ABG pH ABG pCO2 ABG pO2 ABG HCO3 ABG O2 Saturation Sodium Potassium 5.7 H Carbon Dioxide 16 L BUN 21 H Creatinine 1.23 H Glucose 479 H POC Glucose (mg/dL) Plasma Lactic Acid [place] Calcium 10.8 H Phosphorus 9.6 H* Magnesium 2.7 H AST 172 H ALT 99 H Troponin I 0.459 H* Total Protein 5.6 L Albumin 3.0 L 06/07/21 06/08/21 06/08/21 23:02 01:40 01:58 WBC MCHC Neutrophils # PT INR APTT ABG pH ABG pCO2 ABG pO2 ABG HCO3 ABG O2 Saturation Sodium Potassium Carbon Dioxide BUN Creatinine Glucose POC Glucose (mg/dL) 445 H 448 H Plasma Lactic Acid [place] 19.4 H* Calcium Phosphorus Magnesium AST ALT Troponin I Total Protein Albumin 06/08/21 06/08/21 06/08/21 04:31 04:48 04:48 WBC MCHC Neutrophils # PT INR APTT 44.4 H ABG pH ABG pCO2 ABG pO2 ABG HCO3 ABG O2 Saturation Sodium Potassium Carbon Dioxide BUN Creatinine Glucose POC Glucose (mg/dL) 485 H Plasma Lactic Acid [place] Calcium Phosphorus Magnesium AST ALT Troponin I 5.880 H* Total Protein Albumin 06/08/21 06/08/21 06/08/21 04:48 04:59 04:59 WBC MCHC Neutrophils # PT INR APTT ABG pH ABG pCO2 ABG pO2 ABG HCO3 ABG O2 Saturation Sodium 132 L Potassium Carbon Dioxide 20 L BUN 26 H Creatinine 1.05 H Glucose 476 H POC Glucose (mg/dL) Plasma Lactic Acid [place] 4.9 H* Calcium Phosphorus 5.2 H Magnesium AST ALT Troponin I Total Protein Albumin 06/08/21 06/08/21 06/08/21 05:55 06:06 07:46 WBC MCHC Neutrophils # PT INR APTT ABG pH 7.46 H ABG pCO2 30 L ABG pO2 193 H ABG HCO3 ABG O2 Saturation 99.6 H Sodium Potassium Carbon Dioxide BUN Creatinine Glucose POC Glucose (mg/dL) 476 H Plasma Lactic Acid [place] 4.5 H* Calcium Phosphorus Magnesium AST ALT Troponin I Total Protein Albumin 06/08/21 08:49 WBC MCHC Neutrophils # PT INR APTT ABG pH ABG pCO2 ABG pO2 ABG HCO3 ABG O2 Saturation Sodium Potassium Carbon Dioxide BUN Creatinine Glucose POC Glucose (mg/dL) 419 H Plasma Lactic Acid [place] Calcium Phosphorus Magnesium AST ALT Troponin I Total Protein Albumin - Diagnostic Findings Chest x-ray: image reviewed Assessment and Plan Assessment: Status post cardiopulmonary arrest, with cardiopulmonary resuscitation and return of spontaneous circulation, lasting about 10 minutes or so. The patient demonstrated both bradycardia, and pulseless electrical activity (PEA). Status post intubation and mechanical ventilation for cardiopulmonary arrest. Acute myocardial infarction. Acute CHF/pulmonary edema. History of diabetes mellitus. History of CAD, with previous bypass surgery. History of hyperlipidemia. History of hypertension. History of CVA. Plan: Plan dated 06/08/2021. I did have a long conversation with the patient's daughter. Initially, in the emergency department, the patient was made DO NOT RESUSCITATE. Apparently after the nurse spoke to the daughter, the patient was then a full code. I do long conversation with the daughter, who spoke to her brother, and her father. Subsequent to that, and before leaving the intensive care unit, we informed by the nurse, that the patient is now a DO NOT RESUSCITATE patient again. Currentl y, the patient's on IV heparin, and propofol. I don't believe there is any plans for the patient to go to the catheterization laboratory. Additional recommendations and suggestions are forthcoming. Prognosis is very guarded. We'll continue to follow make recommendations where appropriate. Time with Patient: Greater than 30
--- NOTE | 2021-06-08 10:36 | P.HPIM ---
History of Present Illness This is a pleasant 75 years old female with past medical history of diabetes mellitus, hypertension, coronary artery disease status post CABG. Was unresponsive on the presentation, she was severely dyspneic earlier when she was found by EMS and hypotensive with blood pressure 72/53 on admission, heart rate 69, breathing rate 14 and saturation 92% of oxygen In the ER she became pulseless, bradycardic and PEA, and then she experience 10- 15 minutes of ACS protocol in the emergency room followed by spontaneous return of circulation. Patient was intubated and placed on mechanical ventilation Labs showed leukocytosis with 13.8, rest of CBC is unremarkable. INR is 1.3, PTT is 25.8. On admission pH was 7.1 with pCO2 47 and pO2 64, repeat ABG this morning showing pH 7.4, pCO2 30 which is low and pO2 of 193. Sodium is 132, creatinine 1.0 with GFR is 52, on admission creatinine was 1.2 Lactic acid high 4.9 and 4.5 currently was 19.4 on admission, liver enzymes slightly elevated with AST 172, ALT 99 but normal bilirubin, troponin is high 0.4, proBNP is 4900 EKG showing normal sinus rhythm with short IL interval, rate of 72 [address] QTC [address] depression on the lateral blades In the emergency room patient was resuscitated with IV fluids, started on heparin drip, as well as aspirin and Protonix Cardiology and pulmonary team consulted Patient current PEEP stent, FiO2 of 55%, she is on heparin drip, monitor showing sinus rhythm at 60/m. Neely catheter in place with yellow urine. No NG tube in place Chest x-ray: Improving bilateral lung infiltrates, small bilateral pleural effusions Review of Systems Review of system: N/a, patient is intubated ROS unobtainable: due to endotracheal tube, due to mental status Past Medical History Past Medical History: Coronary Artery Disease (CAD), CVA/TIA, Diabetes Mellitus, Hypertension History of Any Multi-Drug Resistant Organisms: None Reported Past Surgical History: Appendectomy, Section, Coronary Bypass/CABG, Tonsillectomy Additional Past Surgical History / Comment(s): carpal tunnel Past Psychological History: No Psychological Hx Reported Smoking Status: Unknown if ever smoked Past Alcohol Use History: None Reported Past Drug Use History: None Reported Medications and Allergies Home Medications Medication Instructions Recorded Confirmed Type Colesevelam [Welchol] 1,250 mg PO BID 10/13/13 06/07/21 History Furosemide [Lasix] 40 mg PO DAILY 10/13/13 06/07/21 History Insulin Glargine [Lantus] 50 units SQ DAILY 10/13/13 06/07/21 History Cyanocobalamin [Vitamin B-12 1,000 mcg IM Q30D 09/28/15 06/07/21 History Injection] Ergocalciferol (Vitamin D2) 1,250 mcg PO Q7D 06/07/21 06/07/21 History [Drisdol (50,000 Iu)] Insulin Aspart [NovoLOG Flexpen] 20 unit SQ TID-W/MEALS 06/07/21 06/07/21 History amLODIPine [Norvasc] 5 mg PO DAILY 06/08/21 06/08/21 History Allergies Allergy/AdvReac Type Severity Reaction Status Date / Time amlodipine besylate Allergy Unknown Verified 06/08/21 08:30 [From Lotrel] atorvastatin calcium Allergy Unknown Verified 06/08/21 08:30 [From Lipitor] benazepril HCl [From Lotrel] Allergy Unknown Verified 06/08/21 08:30 Beta-Blockers Allergy Unknown Verified 06/08/21 08:30 (Beta-Adrenergic Bloc betaxolol HCl [From Kerlone] Allergy Unknown Verified 06/08/21 08:30 chlorpheniramine Allergy Unknown Verified 06/08/21 08:34 [From DURAHIST] cilostazol [From Pletal] Allergy Unknown Verified 06/08/21 08:30 enalapril maleate Allergy Unknown Verified 06/08/21 08:30 [From Vasotec] enalaprilat dihydrate Allergy Unknown Verified 06/08/21 08:30 [From Vasotec] ezetimibe [From Vytorin] Allergy Unknown Verified 06/08/21 08:30 fluticasone propionate Allergy Unknown Verified 06/08/21 08:30 [From Flonase] fluvastatin sodium Allergy Unknown Verified 06/08/21 08:30 [From Lescol] gabapentin [From Neurontin] Allergy Unknown Verified 06/08/21 08:30 guaifenesin Allergy Unknown Verified 06/08/21 08:30 irbesartan [From Avapro] Allergy Unknown Verified 06/08/21 08:30 levofloxacin [From Levaquin] Allergy Unknown Verified 06/08/21 08:30 metoprolol [From Lopressor] Allergy Unknown Verified 06/08/21 08:34 niacin Allergy Unknown Verified 06/08/21 08:30 nystatin Allergy Unknown Verified 06/08/21 08:34 prazosin [Prazosin] Allergy Unknown Verified 06/08/21 08:30 pseudoephedrine Allergy Unknown Verified 06/08/21 08:30 scopolamine [From DURAHIST] Allergy Unknown Verified 06/08/21 08:34 simvastatin [From Vytorin] Allergy Unknown Verified 06/08/21 08:30 Sulfa (Sulfonamide Allergy Unknown Verified 06/08/21 08:30 Antibiotics) sulfamethoxazole Allergy Unknown Verified 06/08/21 08:30 [From Bactrim] trimethoprim [From Bactrim] Allergy Unknown Verified 06/08/21 08:30 Physical Exam Vitals: Vital Signs Temp Pulse Resp BP Pulse Ox 06/08/21 07:00 58 L 26 H 87/44 98 06/08/21 06:45 98.9 F 61 0 L 90/47 98 06/08/21 06:30 61 6 L 107/47 98 06/08/21 06:15 59 L 26 H 110/49 97 06/08/21 06:00 62 26 H 110/52 100 06/08/21 05:45 61 26 H 90/45 100 06/08/21 05:30 54 L 26 H 73/38 99 06/08/21 05:15 50 L 26 H 74/38 100 06/08/21 05:00 98.9 F 51 L 26 H 74/38 99 06/08/21 04:45 53 L 26 H 77/40 99 06/08/21 04:40 52 L 26 H 77/40 99 06/08/21 04:30 51 L 26 H 75/41 99 06/08/21 04:20 55 L 26 H 78/41 99 06/08/21 04:10 56 L 262 H 81/39 99 06/08/21 04:00 56 L 26 H 80/45 99 06/08/21 03:50 56 L 26 H 80/45 99 06/08/21 03:40 58 L 26 H 84/44 99 06/08/21 03:30 59 L 26 H 75/39 99 06/08/21 03:20 58 L 26 H 75/39 99 06/08/21 03:10 56 L 26 H 68/36 100 06/08/21 03:00 55 L 26 H 97/46 99 06/08/21 02:50 59 L 26 H 97/46 99 06/08/21 02:40 60 26 H 97/46 100 06/08/21 02:30 62 26 H 97/46 100 06/08/21 02:20 65 26 H 97/46 99 06/08/21 02:10 68 26 H 97/46 95 06/08/21 02:00 70 26 H 06/08/21 01:58 68 31 H 06/08/21 01:00 68 22 123/74 95 06/08/21 00:50 63 06/08/21 00:34 67 06/08/21 00:33 67 18 107/52 91 L 06/07/21 23:59 70 31 H 113/55 91 L 06/07/21 23:30 83 22 172/80 93 L 06/07/21 23:02 74 24 104/58 85 L 06/07/21 22:30 74 127/57 85 L 06/07/21 22:08 69 14 72/53 92 L Intake and Output 06/07/21 06/08/21 06/08/21 22:59 06:59 14:59 Intake Total 2003.343 Output Total 60 10 Balance 1944.343 -10 Intake: Intake, IV Titration 2003.343 Amount Lactated Ringers 1,000 ml 2000 @ 999 mls/hr IV .Q1H1M MARTIN Rx#:[id number] propofoL 1,000 mg In 4.343 Empty Bag 1 bag @ 5 MCG/ KG/MIN 1.551 mls/hr IV . Q24H MARTIN Rx#:[id number] Output: Urine 60 10 Uretheral (Neely) 0 Other: Voiding Method Indwelling Catheter Weight 51.71 kg 60.6 kg -GENERAL: The patient is intubated and sedated HEENT: Pupils are round and equally reacting to light. EOMI. No scleral icterus. No conjunctival pallor. Normocephalic, atraumatic. No pharyngeal erythema. No thyromegaly. CARDIOVASCULAR: S1 and S2 present. No murmurs, rubs, or gallops. PULMONARY: Chest is clear to auscultation, no wheezing or crackles. -ABDOMEN: Soft, nontender, nondistended, normoactive bowel sounds. No palpable organomegaly. Neely catheter in place MUSCULOSKELETAL: No joint swelling or deformity. EXTREMITIES: No cyanosis, clubbing, or pedal edema. NEUROLOGICAL: Gross neurological examination did not reveal any focal deficits. SKIN: No rashes. no petechiae. Results CBC & Chem 7: 06/07/21 22:53 06/08/21 04:59 Labs: Abnormal Lab Results - Last 24 Hours (Table) 06/07/21 06/07/21 06/07/21 Range/Units 22:19 22:52 22:53 WBC 13.8 H (3.8-10.6) k/uL MCHC 28.5 L (31.0-37.0) g/dL Neutrophils # 10.3 H (1.3-7.7) k/uL PT (9.0-12.0) sec INR (<1.2) APTT (22.0-30.0) sec ABG pH 7.17 L* (7.35-7.45) ABG pCO2 47 H (35-45) mmHg ABG pO2 64 L (83-108) mmHg ABG HCO3 17 L (21-25) mmol/L ABG O2 Saturation 84.6 L (94-97) % Sodium (137-145) mmol/L Potassium (3.5-5.1) mmol/L Carbon Dioxide (22-30) mmol/L BUN (7-17) mg/dL Creatinine (0.52-1.04) mg/dL Glucose (74-99) mg/dL POC Glucose (mg/dL) 493 H (75-99) mg/dL Plasma Lactic Acid [place] (0.7-2.0) mmol/L Calcium (8.4-10.2) mg/dL Phosphorus (2.5-4.5) mg/dL Magnesium (1.6-2.3) mg/dL AST (14-36) U/L ALT (4-34) U/L Troponin I (0.000-0.034) ng/mL Total Protein (6.3-8.2) g/dL Albumin (3.5-5.0) g/dL 06/07/21 06/07/21 06/07/21 Range/Units 22:53 23:02 23:02 WBC (3.8-10.6) k/uL MCHC (31.0-37.0) g/dL Neutrophils # (1.3-7.7) k/uL PT 13.7 H (9.0-12.0) sec INR 1.3 H (<1.2) APTT (22.0-30.0) sec ABG pH (7.35-7.45) ABG pCO2 (35-45) mmHg ABG pO2 (83-108) mmHg ABG HCO3 (21-25) mmol/L ABG O2 Saturation (94-97) % Sodium (137-145) mmol/L Potassium 5.7 H (3.5-5.1) mmol/L Carbon Dioxide 16 L (22-30) mmol/L BUN 21 H (7-17) mg/dL Creatinine 1.23 H (0.52-1.04) mg/dL Glucose 479 H (74-99) mg/dL POC Glucose (mg/dL) (75-99) mg/dL Plasma Lactic Acid [place] (0.7-2.0) mmol/L Calcium 10.8 H (8.4-10.2) mg/dL Phosphorus 9.6 H* (2.5-4.5) mg/dL Magnesium 2.7 H (1.6-2.3) mg/dL AST 172 H (14-36) U/L ALT 99 H (4-34) U/L Troponin I 0.459 H* (0.000-0.034) ng/mL Total Protein 5.6 L (6.3-8.2) g/dL Albumin 3.0 L (3.5-5.0) g/dL 06/07/21 06/08/21 06/08/21 Range/Units 23:02 01:40 01:58 WBC (3.8-10.6) k/uL MCHC (31.0-37.0) g/dL Neutrophils # (1.3-7.7) k/uL PT (9.0-12.0) sec INR (<1.2) APTT (22.0-30.0) sec ABG pH (7.35-7.45) ABG pCO2 (35-45) mmHg ABG pO2 (83-108) mmHg ABG HCO3 (21-25) mmol/L ABG O2 Saturation (94-97) % Sodium (137-145) mmol/L Potassium (3.5-5.1) mmol/L Carbon Dioxide (22-30) mmol/L BUN (7-17) mg/dL Creatinine (0.52-1.04) mg/dL Glucose (74-99) mg/dL POC Glucose (mg/dL) 445 H 448 H (75-99) mg/dL Plasma Lactic Acid [place] 19.4 H* (0.7-2.0) mmol/L Calcium (8.4-10.2) mg/dL Phosphorus (2.5-4.5) mg/dL Magnesium (1.6-2.3) mg/dL AST (14-36) U/L ALT (4-34) U/L Troponin I (0.000-0.034) ng/mL Total Protein (6.3-8.2) g/dL Albumin (3.5-5.0) g/dL 06/08/21 06/08/21 06/08/21 Range/Units 04:31 04:48 04:48 WBC (3.8-10.6) k/uL MCHC (31.0-37.0) g/dL Neutrophils # (1.3-7.7) k/uL PT (9.0-12.0) sec INR (<1.2) APTT 44.4 H (22.0-30.0) sec ABG pH (7.35-7.45) ABG pCO2 (35-45) mmHg ABG pO2 (83-108) mmHg ABG HCO3 (21-25) mmol/L ABG O2 Saturation (94-97) % Sodium (137-145) mmol/L Potassium (3.5-5.1) mmol/L Carbon Dioxide (22-30) mmol/L BUN (7-17) mg/dL Creatinine (0.52-1.04) mg/dL Glucose (74-99) mg/dL POC Glucose (mg/dL) 485 H (75-99) mg/dL Plasma Lactic Acid [place] (0.7-2.0) mmol/L Calcium (8.4-10.2) mg/dL Phosphorus (2.5-4.5) mg/dL Magnesium (1.6-2.3) mg/dL AST (14-36) U/L ALT (4-34) U/L Troponin I 5.880 H* (0.000-0.034) ng/mL Total Protein (6.3-8.2) g/dL Albumin (3.5-5.0) g/dL 06/08/21 06/08/21 06/08/21 Range/Units 04:48 04:59 04:59 WBC (3.8-10.6) k/uL MCHC (31.0-37.0) g/dL Neutrophils # (1.3-7.7) k/uL PT (9.0-12.0) sec INR (<1.2) APTT (22.0-30.0) sec ABG pH (7.35-7.45) ABG pCO2 (35-45) mmHg ABG pO2 (83-108) mmHg ABG HCO3 (21-25) mmol/L ABG O2 Saturation (94-97) % Sodium 132 L (137-145) mmol/L Potassium (3.5-5.1) mmol/L Carbon Dioxide 20 L (22-30) mmol/L BUN 26 H (7-17) mg/dL Creatinine 1.05 H (0.52-1.04) mg/dL Glucose 476 H (74-99) mg/dL POC Glucose (mg/dL) (75-99) mg/dL Plasma Lactic Acid [place] 4.9 H* (0.7-2.0) mmol/L Calcium (8.4-10.2) mg/dL Phosphorus 5.2 H (2.5-4.5) mg/dL Magnesium (1.6-2.3) mg/dL AST (14-36) U/L ALT (4-34) U/L Troponin I (0.000-0.034) ng/mL Total Protein (6.3-8.2) g/dL Albumin (3.5-5.0) g/dL 06/08/21 06/08/21 Range/Units 05:55 06:06 WBC (3.8-10.6) k/uL MCHC (31.0-37.0) g/dL Neutrophils # (1.3-7.7) k/uL PT (9.0-12.0) sec INR (<1.2) APTT (22.0-30.0) sec ABG pH 7.46 H (7.35-7.45) ABG pCO2 30 L (35-45) mmHg ABG pO2 193 H (83-108) mmHg ABG HCO3 (21-25) mmol/L ABG O2 Saturation 99.6 H (94-97) % Sodium (137-145) mmol/L Potassium (3.5-5.1) mmol/L Carbon Dioxide (22-30) mmol/L BUN (7-17) mg/dL Creatinine (0.52-1.04) mg/dL Glucose (74-99) mg/dL POC Glucose (mg/dL) 476 H (75-99) mg/dL Plasma Lactic Acid [place] (0.7-2.0) mmol/L Calcium (8.4-10.2) mg/dL Phosphorus (2.5-4.5) mg/dL Magnesium (1.6-2.3) mg/dL AST (14-36) U/L ALT (4-34) U/L Troponin I (0.000-0.034) ng/mL Total Protein (6.3-8.2) g/dL Albumin (3.5-5.0) g/dL Assessment and Plan Assessment: Patient was unresponsive on admission, hypotensive and pulseless underwent ACS protocol for about 10-15 minutes per documentation Acute hypoxic respiratory failure Elevated troponin, with lateral lead ST depression Mild acute kidney injury Elevated lactic acid Diabetes mellitus Hypertension History of coronary artery disease status post CABG Plan: this is a 75 years old female who presents with hypotension, unresponsiveness and respiratory failure, she was intubated in the emergency room Continue with mechanical ventilation was pulmonary/critical care consult Continue with heparin drip and aspirin Cardiology consult Check echocardiogram Continue with insulin sliding scale Labs and medication were reviewed.. Continue same treatment. Continue with symptomatic treatment. Resume home medication. Monitor lytes and vitals. DVT and GI prophylaxis. Further recommendationsas per clinical course of the coty carmona DVT prophylaxis: heparin GI Prophylaxis: Ppi Prognosis is guarded
[2021-06-08 10:45] LABS: Appearance,Urine Cloudy (Clear); Bacteria,Urine Many /hpf; Bilirubin,Urine 1+ (Negative); Blood,Urine Moderate (Negative); Color,Urine Yellow; Glucose,Urine (UA) 3+ (Negative); Hyaline Casts,Urine 1 /lpf (0-2); Ketones,Urine Trace (Negative); Leukocyte Esterase,Urine Small (Negative); Mucus,Urine Occasional /hpf; Nitrite,Urine Negative (Negative); Protein,Urine 1+ (Negative); RBC,Urine 16 /hpf (0-5); Specific Gravity,Urine 1.022 (1.001-1.035); Squamous Epithelial Cell,Urine <1 /hpf (0-4); WBC,Urine 6 /hpf (0-5)
--- NOTE | 2021-06-08 12:00 | ECHOF ---
Referral Reason:cpr MEASUREMENTS -------- HEIGHT: 165.1 cm WEIGHT: 60.3 kg BP: RVIDd: 2.3 cm (< 3.3) IVSd: 0.8 cm (0.6 - 1.1) LVIDd: 5.4 cm (3.9 - 5.3) LVPWd: 1.1 cm (0.6 - 1.1) IVSs: 1.4 cm LVIDs: 4.1 cm LVPWs: 1.6 cm LA Diam: 4.9 cm (2.7 - 3.8) LAESV Index (A-L): 64.83 ml/m Ao Diam: 2.3 cm (2.0 - 3.7) AV Cusp: 1.4 cm (1.5 - 2.6) MV EXCURSION: 16.659 mm (> 18.000) MV EF SLOPE: 75 mm/s (70 - 150) EPSS: 1.2 cm MV E Brigido: 0.87 m/s MV DecT: 194 ms MV A Brigido: 0.45 m/s MV E/A Ratio: 1.94 AR PHT: 377 ms RAP: 5.00 mmHg RVSP: 40.56 mmHg FINDINGS -------- Sinus rhythm. This was a technically adequate study. The left ventricular size is normal. Overall left ventricular systolic function is mild-moderately impaired with, an EF between 40 - 45 %. Basal inferior LV wall motion is hypokinetic. The right ventricle is normal in size. LA is severely dilated >40 ml/m2 The right atrial size is normal. There is mild aortic valve sclerosis. There is mild aortic regurgitation. The mitral valve leaflets are mildly thickened. Mild mitral annular calcification present. Severe mitral regurgitation is present. Mild tricuspid regurgitation present. There is mild pulmonary hypertension. The right ventricular systolic pressure, as measured by Doppler, is 40.56mmHg. Trace/mild (physiologic) pulmonic regurgitation. The aortic root size is normal. There is no pericardial effusion. CONCLUSIONS -------- 1. The left ventricular size is normal. 2. Overall left ventricular systolic function is mild-moderately impaired with, an EF between 40 - 45 %. 3. Basal inferior LV wall motion is hypokinetic. 4. The right ventricle is normal in size. 5. LA is severely dilated >40 ml/m2 6. The right atrial size is normal. 7. There is mild aortic valve sclerosis. 8. There is mild aortic regurgitation. 9. The mitral valve leaflets are mildly thickened. 10. Mild mitral annular calcification present. 11. Severe mitral regurgitation is present. 12. Mild tricuspid regurgitation present. 13. There is mild pulmonary hypertension. 14. The right ventricular systolic pressure, as measured by Doppler, is 40.56mmHg. 15. Trace/mild (physiologic) pulmonic regurgitation. 16. The aortic root size is normal. 17. There is no pericardial effusion. MARINE ENGINEER: Cleo Perales RDCS
[2021-06-08 12:27] LABS: Glucose,Whole Blood 236 mg/dL (75-99)
[2021-06-08] MEDS ORDERED: FUROSEMIDE 10 MG/ML 10 ML VIAL IV STA (13:26)
[2021-06-08 13:40] LABS: Glucose,Whole Blood 183 mg/dL (75-99)
[2021-06-08 14:48] VITALS: BMI 21.5
[2021-06-08 16:31] LABS: Glucose,Whole Blood 61 mg/dL (75-99)
[2021-06-08] MEDS ORDERED: DEXTROSE 50% SYRINGE 50 ML IVP STA ×2 (17:00→18:44)
[2021-06-08 17:02] LABS: Glucose,Whole Blood 70 mg/dL (75-99)
[2021-06-08 17:05] LABS: Calcium 8.1 mg/dL (8.4-10.2); Potassium 3.6 mmol/L (3.5-5.1)
[2021-06-08] MEDS ORDERED: POTASSIUM CHLORIDE ER 20 MEQ TAB.ER PO STA (17:18)
[2021-06-08 17:47] LABS: Glucose,Whole Blood 84 mg/dL (75-99)
[2021-06-08 18:41] LABS: Glucose,Whole Blood 47 mg/dL (75-99)
[2021-06-08 19:09] LABS: Glucose,Whole Blood 92 mg/dL (75-99)
[2021-06-08 20:25] LABS: Glucose,Whole Blood 94 mg/dL (75-99)
[2021-06-08 21:55] LABS: Glucose,Whole Blood 100 mg/dL (75-99)
[2021-06-09] MEDS: IPRATROPIUM-ALBUTEROL 3 ML NEB INHALATION SCH ×6 (00:12→21:27)
[2021-06-09] MEDS: HEPARIN SOD,PORK IN 0.45% NACL 25,000 UNIT in 0.45% NACL 1 250ML.BAG IV SCH ×2 (01:27→12:41)
[2021-06-09 02:09] LABS: Glucose,Whole Blood 153 mg/dL (75-99)
[2021-06-09] MEDS: INSULIN ASPART (NovoLOG) 100 UNIT/ML VIAL SQ SCH ×12 (03:14→22:47)
[2021-06-09 04:51] LABS: Glucose,Whole Blood 169 mg/dL (75-99)
[2021-06-09 05:55] LABS: Glucose,Whole Blood 198 mg/dL (75-99)
[2021-06-09 06:14] LABS: ABG Base Excess 0.1 mmol/L; ABG HCO3 23 mmol/L (21-25); ABG Oxygen Saturation 99.3 % (94-97); ABG PCO2 31 mmHg (35-45); ABG PH 7.49 (7.35-7.45); ABG PO2 167 mmHg (83-108); ABG TCO2 24 mmol/L (19-24); Allen Test Performed? Yes
--- NOTE | 2021-06-09 06:29 | XR ---
EXAMINATION TYPE: XR chest 1V DATE OF EXAM: 06/09/2021 CLINICAL HISTORY: Difficulty breathing progress study. TECHNIQUE: Single AP portable semiupright view of the chest is obtained. COMPARISON: Chest x-ray from one day earlier and older studies. FINDINGS: Stable endotracheal and orogastric tubes. Overlying sternal wires and mediastinal clips re demonstrated. Osseous structures are demineralized. Multilevel spurring in the spine. Chronic parenchymal changes b ilaterally with bibasilar and multifocal increased opacities remaining present but improved since adm ission. Surgical clips epigastric region are noted. Stable mild cardiomegaly. IMPRESSION: Background chronic parenchymal changes and mild cardiomegaly with small bilateral pleural effusions. Bilateral multifocal edema and/or infiltrates remain present. Slight improvement from one day earlier noted.
[2021-06-09 08:11] LABS: Basophils % (A) 0 %; Eosinophils % (A) 0 %; HCT 33.6 % (34.0-46.0); HGB 11.1 gm/dL (11.4-16.0); Hypochromasia Slight; Lymphocytes # (A) 1.1 k/uL (1.0-4.8); Lymphocytes % (A) 8 %; MCH 29.6 pg (25.0-35.0); MCHC 32.9 g/dL (31.0-37.0); Mean Platelet Volume 8.6; Monocytes # (A) 0.5 k/uL (0-1.0); Monocytes % (A) 4 %; Neutrophils # (A) 12.5 k/uL (1.3-7.7); Neutrophils % (A) 88 %; Platelet Count 318 k/uL (150-450); RBC 3.74 m/uL (3.80-5.40); RDW 13.9 % (11.5-15.5); WBC 14.3 k/uL (3.8-10.6)
[2021-06-09 08:13] LABS: MCV 89.9 fL (80.0-100.0)
[2021-06-09 08:23] LABS: Albumin 2.3 g/dL (3.5-5.0); Calcium 7.9 mg/dL (8.4-10.2); Magnesium 1.8 mg/dL (1.6-2.3); Phosphorus 3.1 mg/dL (2.5-4.5); Total Bilirubin 0.5 mg/dL (0.2-1.3); Total Protein 4.8 g/dL (6.3-8.2)
[2021-06-09] MEDS: ASPIRIN 325 MG TAB PO SCH (08:41)
[2021-06-09] MEDS: PANTOPRAZOLE 40 MG/10 ML VIAL IV SCH (08:41)
[2021-06-09] MEDS: SODIUM CHLORIDE 0.9% 1,000 ML IV SCH (08:41)
[2021-06-09 08:45] LABS: Glucose,Whole Blood 170 mg/dL (75-99)
[2021-06-09] MEDS ORDERED: Magnesium Replacement Protocol 1 EACH MISC MISCELLANE PRN (09:19)
--- NOTE | 2021-06-09 09:28 | P.PN ---
Subjective HISTORY OF PRESENTING ILLNESS Patient is a 75-year-old female with a history of diabetes mellitus type 1, coronary artery disease status post CABG 2000, hypertension, hyperlipidemia. Patient currently intubated and sedated and history is supplied the chart. Apparently patient was extremely short of breath speaking one-word sentences and then had a cardiac arrest and became bradycardic. By the time patient came to emergency department patient was still noted to be PEA and apparently another 15 minutes of CPR was performed with eventual ROSC. Patient has been on a heparin drip in ICU as well as propofol and otherwise remains on ventilator with FiO2 55% and a PEEP of 10. There is no report of any chest pain or pressure noted before and appears mainly shortness breath. Initial EKG shows diffuse ST depressions in the lateral leads. Initial blood work shows white blood cell count 13.8, hemoglobin 13.0, INR 1.3, potassium 5.7, creatinine 1.2, lactic acid 19, AST 172, ALT 99, calcium 10.8, troponin 0.45, proBNP 4900, repeat lactic ac id 4.9, troponin 5.8. Family made patient DO NOT RESUSCITATE currently. 06/09 Patient seen and examined. Patient remains intubated and sedated. Weaning of sedation attempted this morning and patient somewhat arousable. Reported following some commands. FiO2 40% with a PEEP of 10. Blood pressures remain stable. Troponins noted to be increasing however EKG without any significant changes. Echo shows EF 40-45% with concern of basilar inferior hypokinesis and severe mitral regurgitation. PHYSICAL EXAMINATION Vital signs reviewed. CONSTITUTIONAL: No apparent distress, ill appearing, intubated and sedated HEENT: Head is normocephalic. Pupils are equal, round. Sclerae anicteric. Mucous membranes of the mouth are moist. No JVD. No carotid bruit. +ETT CHEST EXAMINATION: Lungs are clear to auscultation. No chest wall tenderness is noted on palpation or with deep breathing. HEART EXAMINATION: Regular rate and rhythm. S1, S2 heard. No murmurs, gallops or rub. ABDOMEN: Soft, nontender. Positive bowel sounds. EXTREMITIES: 2+ peripheral pulses, no lower extremity edema and no calf tender ness. NEUROLOGIC EXAMINATION: Patient is sedated ASSESSMENT 1. Cardiac arrest of unclear etiology. Possible type I ID versus primary respiratory etiology. 15 minutes of downtime and emergency department plus time and EMS 2. Non-STEMI unclear type I versus type II mechanism 3. Coronary artery disease with history of CABG 4. Diabetes mellitus type 1 with uncontrolled glucose 5. Altered mental status, rule out anoxic brain injury 6. Bradycardia likely related to cardiac arrest, currently improved 7. Severe mitral regurgitation PLAN Patient with prolonged downtime however appears to be having some arousability with weaning of sedation. Continue to monitor neurologic status. Echo reviewed with EF 40-45% with some basal inferior hypokinesis and severe mitral regurgitation. Echo personally reviewed and appears she likely had a mitral ring placed in the past. May consider EVAN and patient will eventually need a heart catheterization pending neurologic status. Objective - Vital Signs Vital signs: Vital Signs Temp 98.3 F 06/09/21 04:00 Pulse 70 06/09/21 08:20 Resp 26 H 06/09/21 07:00 BP 117/54 06/09/21 07:00 Pulse Ox 99 06/09/21 07:00 Intake & Output 06/08/21 06/09/21 06/09/21 18:59 06:59 18:59 Intake Total 2441.227 0330.622 133.224 Output Total 310 395 75 Balance 1599.082 947.622 58.224 Weight 60.6 kg Intake: Intake, IV Titration 0672.441 2363.622 105.224 Amount Sodium Chloride 0.9% 1, 825 900 75 000 ml @ 75 mls/hr IV . [id number] [facility] Rx#:[id number] Sodium Chloride 0.9% 1, 1000 000 ml @ 999 mls/hr IV . Q1H1M [facility] Rx#:[id number] propofoL 1,000 mg In 84.082 124.622 30.224 Empty Bag 1 bag @ 5 MCG/ KG/MIN 1.551 mls/hr IV . Q24H [facility] Rx#:[id number] Tube Feeding 228 28 Other 90 Output: Urine 310 395 75 Other: Voiding Method Indwelling Catheter Indwelling Catheter # Bowel Movements 0 - Labs CBC & Chem 7: 06/09/21 07:44 06/09/21 07:44 Labs: Abnormal Lab Results - Last 24 Hours (Table) 06/08/21 06/08/21 06/08/21 Range/Units 09:59 10:10 10:43 WBC (3.8-10.6) k/uL RBC (3.80-5.40) m/uL Hgb (11.4-16.0) gm/dL Hct (34.0-46.0) % Neutrophils # (1.3-7.7) k/uL APTT (22.0-30.0) sec ABG pH (7.35-7.45) ABG pCO2 (35-45) mmHg ABG pO2 (83-108) mmHg ABG O2 Saturation (94-97) % Sodium (137-145) mmol/L Chloride (98-107) mmol/L Carbon Dioxide (22-30) mmol/L BUN (7-17) mg/dL Creatinine (0.52-1.04) mg/dL Glucose (74-99) mg/dL POC Glucose (mg/dL) 364 H (75-99) mg/dL Hemoglobin A1c 7.2 H (0.0-6.0) % Plasma Lactic Acid [place] (0.7-2.0) mmol/L Calcium (8.4-10.2) mg/dL AST (14-36) U/L ALT (4-34) U/L Troponin I (0.000-0.034) ng/mL Total Protein (6.3-8.2) g/dL Albumin (3.5-5.0) g/dL Procalcitonin (0.02-0.09) ng/mL Urine Appearance Cloudy H (Clear) Urine Protein 1+ H (Negative) Urine Glucose (UA) 3+ H (Negative) Urine Ketones Trace H (Negative) Urine Blood Moderate H (Negative) Urine Bilirubin 1+ H (Negative) Ur Leukocyte Esterase Small H (Negative) Urine RBC 16 H (0-5) /hpf Urine WBC 6 H (0-5) /hpf Urine Bacteria Many H (None) /hpf Urine Mucus Occasional H (None) /hpf 06/08/21 06/08/21 06/08/21 Range/Units 10:43 10:43 10:43 WBC (3.8-10.6) k/uL RBC (3.80-5.40) m/uL Hgb (11.4-16.0) gm/dL Hct (34.0-46.0) % Neutrophils # (1.3-7.7) k/uL APTT (22.0-30.0) sec ABG pH (7.35-7.45) ABG pCO2 (35-45) mmHg ABG pO2 (83-108) mmHg ABG O2 Saturation (94-97) % Sodium (137-145) mmol/L Chloride (98-107) mmol/L Carbon Dioxide (22-30) mmol/L BUN (7-17) mg/dL Creatinine (0.52-1.04) mg/dL Glucose (74-99) mg/dL POC Glucose (mg/dL) (75-99) mg/dL Hemoglobin A1c (0.0-6.0) % Plasma Lactic Acid [place] 5.6 H* (0.7-2.0) mmol/L Calcium (8.4-10.2) mg/dL AST (14-36) U/L ALT (4-34) U/L Troponin I 22.000 H* (0.000-0.034) ng/mL Total Protein (6.3-8.2) g/dL Albumin (3.5-5.0) g/dL Procalcitonin 8.36 H (0.02-0.09) ng/mL Urine Appearance (Clear) Urine Protein (Negative) Urine Glucose (UA) (Negative) Urine Ketones (Negative) Urine Blood (Negative) Urine Bilirubin (Negative) Ur Leukocyte Esterase (Negative) Urine RBC (0-5) /hpf Urine WBC (0-5) /hpf Urine Bacteria (None) /hpf Urine Mucus (None) /hpf 06/08/21 06/08/21 06/08/21 Range/Units 12:26 13:39 16:29 WBC (3.8-10.6) k/uL RBC (3.80-5.40) m/uL Hgb (11.4-16.0) gm/dL Hct (34.0-46.0) % Neutrophils # (1.3-7.7) k/uL APTT (22.0-30.0) sec ABG pH (7.35-7.45) ABG pCO2 (35-45) mmHg ABG pO2 (83-108) mmHg ABG O2 Saturation (94-97) % Sodium (137-145) mmol/L Chloride (98-107) mmol/L Carbon Dioxide (22-30) mmol/L BUN (7-17) mg/dL Creatinine (0.52-1.04) mg/dL Glucose (74-99) mg/dL POC Glucose (mg/dL) 236 H 183 H 61 L (75-99) mg/dL Hemoglobin A1c (0.0-6.0) % Plasma Lactic Acid [place] (0.7-2.0) mmol/L Calcium (8.4-10.2) mg/dL AST (14-36) U/L ALT (4-34) U/L Troponin I (0.000-0.034) ng/mL Total Protein (6.3-8.2) g/dL Albumin (3.5-5.0) g/dL Procalcitonin (0.02-0.09) ng/mL Urine Appearance (Clear) Urine Protein (Negative) Urine Glucose (UA) (Negative) Urine Ketones (Negative) Urine Blood (Negative) Urine Bilirubin (Negative) Ur Leukocyte Esterase (Negative) Urine RBC (0-5) /hpf Urine WBC (0-5) /hpf Urine Bacteria (None) /hpf Urine Mucus (None) /hpf 06/08/21 06/08/21 06/08/21 Range/Units 16:31 16:31 16:31 WBC (3.8-10.6) k/uL RBC (3.80-5.40) m/uL Hgb (11.4-16.0) gm/dL Hct (34.0-46.0) % Neutrophils # (1.3-7.7) k/uL APTT (22.0-30.0) sec ABG pH (7.35-7.45) ABG pCO2 (35-45) mmHg ABG pO2 (83-108) mmHg ABG O2 Saturation (94-97) % Sodium 135 L (137-145) mmol/L Chloride 108 H (98-107) mmol/L Carbon Dioxide (22-30) mmol/L BUN 31 H (7-17) mg/dL Creatinine 1.37 H (0.52-1.04) mg/dL Glucose 123 H (74-99) mg/dL POC Glucose (mg/dL) (75-99) mg/dL Hemoglobin A1c (0.0-6.0) % Plasma Lactic Acid [place] 2.9 H* (0.7-2.0) mmol/L Calcium 8.1 L (8.4-10.2) mg/dL AST (14-36) U/L ALT (4-34) U/L Troponin I 37.600 H* (0.000-0.034) ng/mL Total Protein (6.3-8.2) g/dL Albumin (3.5-5.0) g/dL Procalcitonin (0.02-0.09) ng/mL Urine Appearance (Clear) Urine Protein (Negative) Urine Glucose (UA) (Negative) Urine Ketones (Negative) Urine Blood (Negative) Urine Bilirubin (Negative) Ur Leukocyte Esterase (Negative) Urine RBC (0-5) /hpf Urine WBC (0-5) /hpf Urine Bacteria (None) /hpf Urine Mucus (None) /hpf 06/08/21 06/08/21 06/08/21 Range/Units 17:01 18:40 21:54 WBC (3.8-10.6) k/uL RBC (3.80-5.40) m/uL Hgb (11.4-16.0) gm/dL Hct (34.0-46.0) % Neutrophils # (1.3-7.7) k/uL APTT (22.0-30.0) sec ABG pH (7.35-7.45) ABG pCO2 (35-45) mmHg ABG pO2 (83-108) mmHg ABG O2 Saturation (94-97) % Sodium (137-145) mmol/L Chloride (98-107) mmol/L Carbon Dioxide (22-30) mmol/L BUN (7-17) mg/dL Creatinine (0.52-1.04) mg/dL Glucose (74-99) mg/dL POC Glucose (mg/dL) 70 L 47 L 100 H (75-99) mg/dL Hemoglobin A1c (0.0-6.0) % Plasma Lactic Acid [place] (0.7-2.0) mmol/L Calcium (8.4-10.2) mg/dL AST (14-36) U/L ALT (4-34) U/L Troponin I (0.000-0.034) ng/mL Total Protein (6.3-8.2) g/dL Albumin (3.5-5.0) g/dL Procalcitonin (0.02-0.09) ng/mL Urine Appearance (Clear) Urine Protein (Negative) Urine Glucose (UA) (Negative) Urine Ketones (Negative) Urine Blood (Negative) Urine Bilirubin (Negative) Ur Leukocyte Esterase (Negative) Urine RBC (0-5) /hpf Urine WBC (0-5) /hpf Urine Bacteria (None) /hpf Urine Mucus (None) /hpf 06/09/21 06/09/21 06/09/21 Range/Units 02:07 04:49 05:54 WBC (3.8-10.6) k/uL RBC (3.80-5.40) m/uL Hgb (11.4-16.0) gm/dL Hct (34.0-46.0) % Neutrophils # (1.3-7.7) k/uL APTT (22.0-30.0) sec ABG pH (7.35-7.45) ABG pCO2 (35-45) mmHg ABG pO2 (83-108) mmHg ABG O2 Saturation (94-97) % Sodium (137-145) mmol/L Chloride (98-107) mmol/L Carbon Dioxide (22-30) mmol/L BUN (7-17) mg/dL Creatinine (0.52-1.04) mg/dL Glucose (74-99) mg/dL POC Glucose (mg/dL) 153 H 169 H 198 H (75-99) mg/dL Hemoglobin A1c (0.0-6.0) % Plasma Lactic Acid [place] (0.7-2.0) mmol/L Calcium (8.4-10.2) mg/dL AST (14-36) U/L ALT (4-34) U/L Troponin I (0.000-0.034) ng/mL Total Protein (6.3-8.2) g/dL Albumin (3.5-5.0) g/dL Procalcitonin (0.02-0.09) ng/mL Urine Appearance (Clear) Urine Protein (Negative) Urine Glucose (UA) (Negative) Urine Ketones (Negative) Urine Blood (Negative) Urine Bilirubin (Negative) Ur Leukocyte Esterase (Negative) Urine RBC (0-5) /hpf Urine WBC (0-5) /hpf Urine Bacteria (None) /hpf Urine Mucus (None) /hpf 06/09/21 06/09/21 06/09/21 Range/Units 06:04 07:44 07:44 WBC 14.3 H (3.8-10.6) k/uL RBC 3.74 L (3.80-5.40) m/uL Hgb 11.1 L (11.4-16.0) gm/dL Hct 33.6 L (34.0-46.0) % Neutrophils # 12.5 H (1.3-7.7) k/uL APTT 33.7 H (22.0-30.0) sec ABG pH 7.49 H (7.35-7.45) ABG pCO2 31 L (35-45) mmHg ABG pO2 167 H (83-108) mmHg ABG O2 Saturation 99.3 H (94-97) % Sodium (137-145) mmol/L Chloride (98-107) mmol/L Carbon Dioxide (22-30) mmol/L BUN (7-17) mg/dL Creatinine (0.52-1.04) mg/dL Glucose (74-99) mg/dL POC Glucose (mg/dL) (75-99) mg/dL Hemoglobin A1c (0.0-6.0) % Plasma Lactic Acid [place] (0.7-2.0) mmol/L Calcium (8.4-10.2) mg/dL AST (14-36) U/L ALT (4-34) U/L Troponin I (0.000-0.034) ng/mL Total Protein (6.3-8.2) g/dL Albumin (3.5-5.0) g/dL Procalcitonin (0.02-0.09) ng/mL Urine Appearance (Clear) Urine Protein (Negative) Urine Glucose (UA) (Negative) Urine Ketones (Negative) Urine Blood (Negative) Urine Bilirubin (Negative) Ur Leukocyte Esterase (Negative) Urine RBC (0-5) /hpf Urine WBC (0-5) /hpf Urine Bacteria (None) /hpf Urine Mucus (None) /hpf 06/09/21 06/09/21 Range/Units 07:44 08:43 WBC (3.8-10.6) k/uL RBC (3.80-5.40) m/uL Hgb (11.4-16.0) gm/dL Hct (34.0-46.0) % Neutrophils # (1.3-7.7) k/uL APTT (22.0-30.0) sec ABG pH (7.35-7.45) ABG pCO2 (35-45) mmHg ABG pO2 (83-108) mmHg ABG O2 Saturation (94-97) % Sodium 135 L (137-145) mmol/L Chloride 111 H (98-107) mmol/L Carbon Dioxide 21 L (22-30) mmol/L BUN 34 H (7-17) mg/dL Creatinine 1.52 H (0.52-1.04) mg/dL Glucose 166 H (74-99) mg/dL POC Glucose (mg/dL) 170 H (75-99) mg/dL Hemoglobin A1c (0.0-6.0) % Plasma Lactic Acid [place] (0.7-2.0) mmol/L Calcium 7.9 L (8.4-10.2) mg/dL AST 379 H (14-36) U/L ALT 329 H (4-34) U/L Troponin I (0.000-0.034) ng/mL Total Protein 4.8 L (6.3-8.2) g/dL Albumin 2.3 L (3.5-5.0) g/dL Procalcitonin (0.02-0.09) ng/mL Urine Appearance (Clear) Urine Protein (Negative) Urine Glucose (UA) (Negative) Urine Ketones (Negative) Urine Blood (Negative) Urine Bilirubin (Negative) Ur Leukocyte Esterase (Negative) Urine RBC (0-5) /hpf Urine WBC (0-5) /hpf Urine Bacteria (None) /hpf Urine Mucus (None) /hpf Microbiology - Last 24 Hours (Table) 06/08/21 01:42 Gram Stain - Preliminary Sputum Sputum Culture - Preliminary
[2021-06-09] MEDS: MAGNESIUM SULFATE-D5W PMX 1 GM in DEXTROSE/WATER 1 100ML.BAG IVPB SCH ×2 (09:35→11:07)
--- NOTE | 2021-06-09 10:50 | P.PN ---
Subjective Progress Note Date: 06/09/21 Principal diagnosis: Cardiopulmonary arrest. Pulmonary consult dated 06/08/2021. 75-year-old female who apparently was brought into the emergency room by EMS. The patient had mental status changes, with profoundly short of breath, and a chest x-ray which showed nearly complete white out of both lungs, and had severe bradycardia. The patient subsequently had a cardiac arrest in the ER. He was intubated in the ER, and she had about a 10 minute or so resuscitation. She luca arently had pulseless electrical activity in the emergency room, as well as bradycardia. I did speak to the ER physician last night. Initially, the patient was a DO NOT RESUSCITATE patient. Apparently after speaking to the daughter, today, the nurse stated that the daughter wanted the patient to be a full code. I did speak to the daughter on the phone, who spoke to her brother, and her father, and the patient was made a DO NOT RESUSCITATE. The patient has a history of diabetes, hyperlipidemia, CAD, CVA, hypertension, and previous bypass surgery. The patient is currently on the ventilator. She is on volume assist control mode, rate 26, tidal volume 400, FiO2 60%, EPAP of 10. Blood gas es show pO2 of 193, pCO2 of 30, and a pH is 7.46. These blood gases were done on 100%. The patient is on propofol at 20 mcg/kg/m, and heparin via weightbased protocol. The patient is also getting saline at 75 mL an hour. Laboratory data includes a white count 13.8, hemoglobin 13, hematocrit 45.4, and platelet count 169,000. PTT is 44.4. Sodium 132, potassium 4.7, chlorides 104, CO2 20, anion gap 8, BUN 26, and creatinine 1.05. Initial glucose was 476. The lactic acid went from 19.4 down to 4.5. The phosphorus was 9.6, the repeat was 5.2. N- terminal proBNP was 4900. Troponins were 0.459 and 5.880. AST was 172. ALT was 99. The initial chest x-ray showed diffuse bilateral infiltrates consistent with fluid overload/CHF, but the more recent chest x-ray shows some improvement in the volume status. Progress note dated 06/09/2021. 75-year-old female, again seen in room 261. We saw her in consultation yesterday, and she was cardiopulmonary arrest patient, having been intubated in the emergency department. She initially was found to have bradycardia, and subsequent to that, had a cardiopulmonary arrest, and was seen by one of the ER physicians. She was transferred up to the intensive care unit. She remains on the mechanical ventilator. She is volume assist control mode, rate 26, tidal volume 400, FiO2 40%, and PEEP of 10. Blood gases show pO2 of 167, pCO2 31, and a pH is 7.49. Those blood gases were done on 50% FiO2. The patient remains on heparin via weight aced protocol, propofol at 35 mcg/g/m, saline at 75 mL an hour, and tube feedings with Nepro at 28 mL an hour. White count 14.3, hemoglobin 11.1, hematocrit 33.6, and platelet count 318,000. Sodium 135, potassium 4, chlorides 111, CO2 21, anion gap is 3, BUN 34, and creatinine 1.52. Albumin is 2.3. AST 379, ALT 329. The patient's most recent troponin was 37.6. Chest x-ray shows improving volume status. Objective - Vital Signs Vital signs: Vital Signs Temp 98.8 F 06/09/21 08:00 Pulse 68 06/09/21 09:00 Resp 27 H 06/09/21 09:00 BP 120/56 06/09/21 09:00 Pulse Ox 100 06/09/21 09:00 Intake & Output 06/08/21 06/09/21 06/09/21 18:59 06:59 18:59 Intake Total 9641.414 2425.622 352.339 Output Total 310 395 75 Balance 1599.082 947.622 277.339 Weight 60.6 kg Intake: Intake, IV Titration 8307.379 5911.622 324.339 Amount Heparin Sod,Pork in 0.45% 211.487 NaCl 25,000 unit In 0.45 % NaCl 1 250ml.bag @ 12 UNITS/KG/HR 6.205 mls/hr IV .Q24H [facility] Rx#: [id number] Sodium Chloride 0.9% 1, 825 900 75 000 ml @ 75 mls/hr IV . [id number] [facility] Rx#:[id number] Sodium Chloride 0.9% 1, 1000 000 ml @ 999 mls/hr IV . Q1H1M [facility] Rx#:[id number] propofoL 1,000 mg In 84.082 124.622 37.852 Empty Bag 1 bag @ 5 MCG/ KG/MIN 1.551 mls/hr IV . Q24H [facility] Rx#:[id number] Tube Feeding 228 28 Other 90 Output: Urine 310 395 75 Other: Voiding Method Indwelling Catheter Indwelling Catheter # Bowel Movements 0 - Exam No acute distress, sedated, and intubated with an orally placed endotracheal tube and NG tube. HEENT examination is grossly unremarkable. Neck supple. Full range of motion. No adenopathy thyromegaly or neck vein distention. Cardiovascular examination reveals regular rhythm rate. S1-S2 normal. No S3 or S4. No discernible murmur noted. Heart rate is 68 bpm. Heart sounds are distant. Lungs reveal diffuse bilateral rhonchi. No wheezes or crackles. Breath sounds equal bilaterally. Abdomen soft without bowel sounds. No masses or tenderness. Extremities are intact. No cyanosis clubbing or edema. Skin is without rash or lesion. Neurologic examination cannot be adequately assessed as the patient's currently sedated. - Labs CBC & Chem 7: 06/09/21 07:44 06/09/21 07:44 Labs: Abnormal Lab Results - Last 24 Hours (Table) 06/08/21 06/08/21 06/08/21 Range/Units 10:10 10:43 10:43 WBC (3.8-10.6) k/uL RBC (3.80-5.40) m/uL Hgb (11.4-16.0) gm/dL Hct (34.0-46.0) % Neutrophils # (1.3-7.7) k/uL APTT (22.0-30.0) sec ABG pH (7.35-7.45) ABG pCO2 (35-45) mmHg ABG pO2 (83-108) mmHg ABG O2 Saturation (94-97) % Sodium (137-145) mmol/L Chloride (98-107) mmol/L Carbon Dioxide (22-30) mmol/L BUN (7-17) mg/dL Creatinine (0.52-1.04) mg/dL Glucose (74-99) mg/dL POC Glucose (mg/dL) (75-99) mg/dL Hemoglobin A1c 7.2 H (0.0-6.0) % Plasma Lactic Acid [place] (0.7-2.0) mmol/L Calcium (8.4-10.2) mg/dL AST (14-36) U/L ALT (4-34) U/L Troponin I 22.000 H* (0.000-0.034) ng/mL Total Protein (6.3-8.2) g/dL Albumin (3.5-5.0) g/dL Procalcitonin (0.02-0.09) ng/mL Urine Appearance Cloudy H (Clear) Urine Protein 1+ H (Negative) Urine Glucose (UA) 3+ H (Negative) Urine Ketones Trace H (Negative) Urine Blood Moderate H (Negative) Urine Bilirubin 1+ H (Negative) Ur Leukocyte Esterase Small H (Negative) Urine RBC 16 H (0-5) /hpf Urine WBC 6 H (0-5) /hpf Urine Bacteria Many H (None) /hpf Urine Mucus Occasional H (None) /hpf 06/08/21 06/08/21 06/08/21 Range/Units 10:43 10:43 12:26 WBC (3.8-10.6) k/uL RBC (3.80-5.40) m/uL Hgb (11.4-16.0) gm/dL Hct (34.0-46.0) % Neutrophils # (1.3-7.7) k/uL APTT (22.0-30.0) sec ABG pH (7.35-7.45) ABG pCO2 (35-45) mmHg ABG pO2 (83-108) mmHg ABG O2 Saturation (94-97) % Sodium (137-145) mmol/L Chloride (98-107) mmol/L Carbon Dioxide (22-30) mmol/L BUN (7-17) mg/dL Creatinine (0.52-1.04) mg/dL Glucose (74-99) mg/dL POC Glucose (mg/dL) 236 H (75-99) mg/dL Hemoglobin A1c (0.0-6.0) % Plasma Lactic Acid Lake 5.6 H* (0.7-2.0) mmol/L Calcium (8.4-10.2) mg/dL AST (14-36) U/L ALT (4-34) U/L Troponin I (0.000-0.034) ng/mL Total Protein (6.3-8.2) g/dL Albumin (3.5-5.0) g/dL Procalcitonin 8.36 H (0.02-0.09) ng/mL Urine Appearance (Clear) Urine Protein (Negative) Urine Glucose (UA) (Negative) Urine Ketones (Negative) Urine Blood (Negative) Urine Bilirubin (Negative) Ur Leukocyte Esterase (Negative) Urine RBC (0-5) /hpf Urine WBC (0-5) /hpf Urine Bacteria (None) /hpf Urine Mucus (None) /hpf 06/08/21 06/08/21 06/08/21 Range/Units 13:39 16:29 16:31 WBC (3.8-10.6) k/uL RBC (3.80-5.40) m/uL Hgb (11.4-16.0) gm/dL Hct (34.0-46.0) % Neutrophils # (1.3-7.7) k/uL APTT (22.0-30.0) sec ABG pH (7.35-7.45) ABG pCO2 (35-45) mmHg ABG pO2 (83-108) mmHg ABG O2 Saturation (94-97) % Sodium 135 L (137-145) mmol/L Chloride 108 H (98-107) mmol/L Carbon Dioxide (22-30) mmol/L BUN 31 H (7-17) mg/dL Creatinine 1.37 H (0.52-1.04) mg/dL Glucose 123 H (74-99) mg/dL POC Glucose (mg/dL) 183 H 61 L (75-99) mg/dL Hemoglobin A1c (0.0-6.0) % Plasma Lactic Acid [place] (0.7-2.0) mmol/L Calcium 8.1 L (8.4-10.2) mg/dL AST (14-36) U/L ALT (4-34) U/L Troponin I (0.000-0.034) ng/mL Total Protein (6.3-8.2) g/dL Albumin (3.5-5.0) g/dL Procalcitonin (0.02-0.09) ng/mL Urine Appearance (Clear) Urine Protein (Negative) Urine Glucose (UA) (Negative) Urine Ketones (Negative) Urine Blood (Negative) Urine Bilirubin (Negative) Ur Leukocyte Esterase (Negative) Urine RBC (0-5) /hpf Urine WBC (0-5) /hpf Urine Bacteria (None) /hpf Urine Mucus (None) /hpf 06/08/21 06/08/21 06/08/21 Range/Units 16:31 16:31 17:01 WBC (3.8-10.6) k/uL RBC (3.80-5.40) m/uL Hgb (11.4-16.0) gm/dL Hct (34.0-46.0) % Neutrophils # (1.3-7.7) k/uL APTT (22.0-30.0) sec ABG pH (7.35-7.45) ABG pCO2 (35-45) mmHg ABG pO2 (83-108) mmHg ABG O2 Saturation (94-97) % Sodium (137-145) mmol/L Chloride (98-107) mmol/L Carbon Dioxide (22-30) mmol/L BUN (7-17) mg/dL Creatinine (0.52-1.04) mg/dL Glucose (74-99) mg/dL POC Glucose (mg/dL) 70 L (75-99) mg/dL Hemoglobin A1c (0.0-6.0) % Plasma Lactic Acid Lake 2.9 H* (0.7-2.0) mmol/L Calcium (8.4-10.2) mg/dL AST (14-36) U/L ALT (4-34) U/L Troponin I 37.600 H* (0.000-0.034) ng/mL Total Protein (6.3-8.2) g/dL Albumin (3.5-5.0) g/dL Procalcitonin (0.02-0.09) ng/mL Urine Appearance (Clear) Urine Protein (Negative) Urine Glucose (UA) (Negative) Urine Ketones (Negative) Urine Blood (Negative) Urine Bilirubin (Negative) Ur Leukocyte Esterase (Negative) Urine RBC (0-5) /hpf Urine WBC (0-5) /hpf Urine Bacteria (None) /hpf Urine Mucus (None) /hpf 03/29/22 03/29/22 03/30/22 Range/Units 18:40 21:54 02:07 WBC (3.8-10.6) k/uL RBC (3.80-5.40) m/uL Hgb (11.4-16.0) gm/dL Hct (34.0-46.0) % Neutrophils # (1.3-7.7) k/uL APTT (22.0-30.0) sec ABG pH (7.35-7.45) ABG pCO2 (35-45) mmHg ABG pO2 (83-108) mmHg ABG O2 Saturation (94-97) % Sodium (137-145) mmol/L Chloride (98-107) mmol/L Carbon Dioxide (22-30) mmol/L BUN (7-17) mg/dL Creatinine (0.52-1.04) mg/dL Glucose (74-99) mg/dL POC Glucose (mg/dL) 47 L 100 H 153 H (75-99) mg/dL Hemoglobin A1c (0.0-6.0) % Plasma Lactic Acid [place] (0.7-2.0) mmol/L Calcium (8.4-10.2) mg/dL AST (14-36) U/L ALT (4-34) U/L Troponin I (0.000-0.034) ng/mL Total Protein (6.3-8.2) g/dL Albumin (3.5-5.0) g/dL Procalcitonin (0.02-0.09) ng/mL Urine Appearance (Clear) Urine Protein (Negative) Urine Glucose (UA) (Negative) Urine Ketones (Negative) Urine Blood (Negative) Urine Bilirubin (Negative) Ur Leukocyte Esterase (Negative) Urine RBC (0-5) /hpf Urine WBC (0-5) /hpf Urine Bacteria (None) /hpf Urine Mucus (None) /hpf 06/09/21 06/09/21 06/09/21 Range/Units 04:49 05:54 06:04 WBC (3.8-10.6) k/uL RBC (3.80-5.40) m/uL Hgb (11.4-16.0) gm/dL Hct (34.0-46.0) % Neutrophils # (1.3-7.7) k/uL APTT (22.0-30.0) sec ABG pH 7.49 H (7.35-7.45) ABG pCO2 31 L (35-45) mmHg ABG pO2 167 H (83-108) mmHg ABG O2 Saturation 99.3 H (94-97) % Sodium (137-145) mmol/L Chloride (98-107) mmol/L Carbon Dioxide (22-30) mmol/L BUN (7-17) mg/dL Creatinine (0.52-1.04) mg/dL Glucose (74-99) mg/dL POC Glucose (mg/dL) 169 H 198 H (75-99) mg/dL Hemoglobin A1c (0.0-6.0) % Plasma Lactic Acid [place] (0.7-2.0) mmol/L Calcium (8.4-10.2) mg/dL AST (14-36) U/L ALT (4-34) U/L Troponin I (0.000-0.034) ng/mL Total Protein (6.3-8.2) g/dL Albumin (3.5-5.0) g/dL Procalcitonin (0.02-0.09) ng/mL Urine Appearance (Clear) Urine Protein (Negative) Urine Glucose (UA) (Negative) Urine Ketones (Negative) Urine Blood (Negative) Urine Bilirubin (Negative) Ur Leukocyte Esterase (Negative) Urine RBC (0-5) /hpf Urine WBC (0-5) /hpf Urine Bacteria (None) /hpf Urine Mucus (None) /hpf 06/09/21 06/09/21 06/09/21 Range/Units 07:44 07:44 07:44 WBC 14.3 H (3.8-10.6) k/uL RBC 3.74 L (3.80-5.40) m/uL Hgb 11.1 L (11.4-16.0) gm/dL Hct 33.6 L (34.0-46.0) % Neutrophils # 12.5 H (1.3-7.7) k/uL APTT 33.7 H (22.0-30.0) sec ABG pH (7.35-7.45) ABG pCO2 (35-45) mmHg ABG pO2 (83-108) mmHg ABG O2 Saturation (94-97) % Sodium 135 L (137-145) mmol/L Chloride 111 H (98-107) mmol/L Carbon Dioxide 21 L (22-30) mmol/L BUN 34 H (7-17) mg/dL Creatinine 1.52 H (0.52-1.04) mg/dL Glucose 166 H (74-99) mg/dL POC Glucose (mg/dL) (75-99) mg/dL Hemoglobin A1c (0.0-6.0) % Plasma Lactic Acid [place] (0.7-2.0) mmol/L Calcium 7.9 L (8.4-10.2) mg/dL AST 379 H (14-36) U/L ALT 329 H (4-34) U/L Troponin I (0.000-0.034) ng/mL Total Protein 4.8 L (6.3-8.2) g/dL Albumin 2.3 L (3.5-5.0) g/dL Procalcitonin (0.02-0.09) ng/mL Urine Appearance (Clear) Urine Protein (Negative) Urine Glucose (UA) (Negative) Urine Ketones (Negative) Urine Blood (Negative) Urine Bilirubin (Negative) Ur Leukocyte Esterase (Negative) Urine RBC (0-5) /hpf Urine WBC (0-5) /hpf Urine Bacteria (None) /hpf Urine Mucus (None) /hpf 06/09/21 Range/Units 08:43 WBC (3.8-10.6) k/uL RBC (3.80-5.40) m/uL Hgb (11.4-16.0) gm/dL Hct (34.0-46.0) % Neutrophils # (1.3-7.7) k/uL APTT (22.0-30.0) sec ABG pH (7.35-7.45) ABG pCO2 (35-45) mmHg ABG pO2 (83-108) mmHg ABG O2 Saturation (94-97) % Sodium (137-145) mmol/L Chloride (98-107) mmol/L Carbon Dioxide (22-30) mmol/L BUN (7-17) mg/dL Creatinine (0.52-1.04) mg/dL Glucose (74-99) mg/dL POC Glucose (mg/dL) 170 H (75-99) mg/dL Hemoglobin A1c (0.0-6.0) % Plasma Lactic Acid [place] (0.7-2.0) mmol/L Calcium (8.4-10.2) mg/dL AST (14-36) U/L ALT (4-34) U/L Troponin I (0.000-0.034) ng/mL Total Protein (6.3-8.2) g/dL Albumin (3.5-5.0) g/dL Procalcitonin (0.02-0.09) ng/mL Urine Appearance (Clear) Urine Protein (Negative) Urine Glucose (UA) (Negative) Urine Ketones (Negative) Urine Blood (Negative) Urine Bilirubin (Negative) Ur Leukocyte Esterase (Negative) Urine RBC (0-5) /hpf Urine WBC (0-5) /hpf Urine Bacteria (None) /hpf Urine Mucus (None) /hpf Microbiology - Last 24 Hours (Table) 06/08/21 01:42 Gram Stain - Preliminary Sputum Sputum Culture - Preliminary Assessment and Plan Assessment: Status post cardiopulmonary arrest, with cardiopulmonary resuscitation and return of spontaneous circulation, lasting about 10 minutes or so. The patient demonstrated both bradycardia, and pulseless electrical activity (PEA). Status post intubation and mechanical ventilation for cardiopulmonary arrest, on 06/07/2021. Acute myocardial infarction. Acute CHF/pulmonary edema. History of diabetes mellitus. History of CAD, with previous bypass surgery. History of hyperlipidemia. History of hypertension. History of CVA. Plan: Plan dated 06/08/2021. I did have a long conversation with the patient's daughter. Initially, in the emergency department, the patient was made DO NOT RESUSCITATE. Apparently after the nurse spoke to the daughter, the patient was then a full code. I do long conversation with the daughter, who spoke to her brother, and her father. Subsequent to that, and before leaving the intensive care unit, we informed by the nurse, that the patient is now a DO NOT RESUSCITATE patient again. Currently, the patient's on IV heparin, and propofol. I don't believe there is any plans for the patient to go to the catheterization laboratory. Additional recommendations and suggestions are forthcoming. Prognosis is very guarded. We'll continue to follow make recommendations where appropriate. Plan dated 06/09/2021. The patient's chest x-ray has improved. Gas exchange is excellent. The patient will be given a daily interruption of sedation and a spontaneous breathing trial. The patient's labs, x-rays, and medications are all reviewed. The patient is receiving tube feeds. He remains on IV heparin, and propofol. She has been seen by cardiology. Troponins continued to rise. Hopefully, we can get the patient extubated. I did have a long conversation with the daughter yes terday, and the patient is a DO NOT RESUSCITATE. We will continue to follow and make recommendations where appropriate. Prognosis is certainly very guarded. Time with Patient: Greater than 30
[2021-06-09] MEDS ORDERED: FUROSEMIDE 10 MG/ML 10 ML VIAL IV STA (10:56)
[2021-06-09 11:37] LABS: Glucose,Whole Blood 216 mg/dL (75-99)
[2021-06-09] MEDS ORDERED: DEXTROSE 5% IN WATER 100 ML with AMIODARONE 150 MG IV ONE (12:02)
[2021-06-09] MEDS ORDERED: AMIODARONE 360 MG in DEXTROSE 5% IN WATER 200 ML IV ONE ×2 (12:03)
--- NOTE | 2021-06-09 12:33 | P.NPCON ---
History of Present Illness - Reason for Consult acute renal failure - History of Present Illness Patient is a 75-year-old female who was brought into the hospital with mental status changes and shortness of breath. Patient had a cardiac arrest in the ER. She had PE and was resuscitated for about 10 minutes. There was some confusion about her CODE STATUS and patient did end up getting intubated. Patient has underlying history of diabetes, hyperlipidemia, coronary artery disease, hypertension, coronary artery bypass surgery Serum creatinine was 1.2 on initial admission and decreased to 1.0 and to date is up to 1.5. Urine output was low at 0-5 mL per hour for a few hours and then picked up after a dose of IV Lasix. Currently staying at about 30-40 mL an hour. Patient remains on the vent Patient is being decreased. No pressors on board at this time Review of Systems As per HPI, other systems negative Past Medical History Past Medical History: Coronary Artery Disease (CAD), CVA/TIA, Diabetes Mellitus, Hypertension History of Any Multi-Drug Resistant Organisms: None Reported Past Surgical History: Appendectomy, Section, Coronary Bypass/CABG, Tonsillectomy Additional Past Surgical History / Comment(s): carpal tunnel Past Psychological History: No Psychological Hx Reported Smoking Status: Unknown if ever smoked Past Alcohol Use History: None Reported Past Drug Use History: None Reported Medications and Allergies Home Medications Medication Instructions Recorded Confirmed Type Colesevelam [Welchol] 1,250 mg PO BID 10/13/13 06/07/21 History Furosemide [Lasix] 40 mg PO DAILY 10/13/13 06/07/21 History Insulin Glargine [Lantus] 50 units SQ DAILY 10/13/13 06/07/21 History Cyanocobalamin [Vitamin B-12 1,000 mcg IM Q30D 09/28/15 06/07/21 History Injection] Ergocalciferol (Vitamin D2) 1,250 mcg PO Q7D 06/07/21 06/07/21 History [Drisdol (50,000 Iu)] Insulin Aspart [NovoLOG Flexpen] 20 unit SQ TID-W/MEALS 06/07/21 06/07/21 History amLODIPine [Norvasc] 5 mg PO DAILY 06/08/21 06/08/21 History Allergies Allergy/AdvReac Type Severity Reaction Status Date / Time amlodipine besylate Allergy Unknown Verified 06/08/21 08:30 [From Lotrel] atorvastatin calcium Allergy Unknown Verified 06/08/21 08:30 [From Lipitor] benazepril HCl [From Lotrel] Allergy Unknown Verified 06/08/21 08:30 Beta-Blockers Allergy Unknown Verified 06/08/21 08:30 (Beta-Adrenergic Bloc betaxolol HCl [From Kerlone] Allergy Unknown Verified 06/08/21 08:30 chlorpheniramine Allergy Unknown Verified 06/08/21 08:34 [From DURAHIST] cilostazol [From Pletal] Allergy Unknown Verified 06/08/21 08:30 enalapril maleate Allergy Unknown Verified 06/08/21 08:30 [From Vasotec] enalaprilat dihydrate Allergy Unknown Verified 06/08/21 08:30 [From Vasotec] ezetimibe [From Vytorin] Allergy Unknown Verified 06/08/21 08:30 fluticasone propionate Allergy Unknown Verified 06/08/21 08:30 [From Flonase] fluvastatin sodium Allergy Unknown Verified 06/08/21 08:30 [From Lescol] gabapentin [From Neurontin] Allergy Unknown Verified 06/08/21 08:30 guaifenesin Allergy Unknown Verified 06/08/21 08:30 irbesartan [From Avapro] Allergy Unknown Verified 06/08/21 08:30 levofloxacin [From Levaquin] Allergy Unknown Verified 06/08/21 08:30 metoprolol [From Lopressor] Allergy Unknown Verified 06/08/21 08:34 niacin Allergy Unknown Verified 06/08/21 08:30 nystatin Allergy Unknown Verified 06/08/21 08:34 prazosin [Prazosin] Allergy Unknown Verified 06/08/21 08:30 pseudoephedrine Allergy Unknown Verified 06/08/21 08:30 scopolamine [From DURAHIST] Allergy Unknown Verified 06/08/21 08:34 simvastatin [From Vytorin] Allergy Unknown Verified 06/08/21 08:30 Sulfa (Sulfonamide Allergy Unknown Verified 06/08/21 08:30 Antibiotics) sulfamethoxazole Allergy Unknown Verified 06/08/21 08:30 [From Bactrim] trimethoprim [From Bactrim] Allergy Unknown Verified 06/08/21 08:30 Physical Exam Vitals: Vital Signs Temp Pulse Resp BP Pulse Ox 06/09/21 11:34 112 H 06/09/21 11:29 88 L 06/09/21 11:22 76 06/09/21 11:00 72 33 H 122/55 88 L 06/09/21 10:00 70 24 115/53 99 06/09/21 09:00 68 27 H 120/56 100 06/09/21 08:20 70 06/09/21 08:08 70 06/09/21 08:00 98.8 F 71 17 117/55 98 06/09/21 07:00 74 26 H 117/54 99 06/09/21 06:00 74 13 133/64 98 06/09/21 05:00 79 26 H 131/61 99 06/09/21 04:00 98.3 F 73 26 H 121/54 99 06/09/21 03:52 77 06/09/21 03:35 74 06/09/21 03:00 69 26 H 124/57 98 06/09/21 02:00 75 26 H 128/55 98 06/09/21 01:00 74 26 H 126/58 99 06/09/21 00:29 70 06/09/21 00:18 77 06/09/21 00:00 100.4 F H 72 26 H 120/57 98 06/08/21 23:00 71 26 H 118/59 98 06/08/21 22:23 71 26 H 122/59 98 06/08/21 22:00 75 26 H 113/53 98 06/08/21 21:00 72 26 H 114/58 98 06/08/21 20:00 98.7 F 73 26 H 109/56 99 06/08/21 19:41 69 06/08/21 19:32 71 06/08/21 19:00 66 26 H 103/50 98 06/08/21 18:00 70 26 H 116/55 98 06/08/21 17:00 75 4 L 125/57 99 06/08/21 16:00 99.3 F 75 0 L 118/57 99 06/08/21 15:30 75 06/08/21 15:21 73 06/08/21 15:00 70 26 H 113/52 99 06/08/21 14:00 65 17 108/51 98 06/08/21 13:00 67 21 107/47 98 Intake and Output 06/08/21 06/09/21 06/09/21 22:59 06:59 14:59 Intake Total 700.041 923.922 702.339 Output Total 280 250 195 Balance 420.041 673.922 507.339 Intake: Intake, IV Titration 610.041 695.922 674.339 Amount Heparin Sod,Pork in 0.45% 211.487 NaCl 25,000 unit In 0.45 % NaCl 1 250ml.bag @ 12 UNITS/KG/HR 6.205 mls/hr IV .Q24H [facility] Rx#: [id number] Magnesium Sulfate-D5w Pmx 200 1 gm In Dextrose/Water 1 100ml.bag @ 100 mls/hr IVPB Q1H [facility] Rx#: [id number] Sodium Chloride 0.9% 1, 525 600 225 000 ml @ 75 mls/hr IV . [id number] [facility] Rx#:[id number] propofoL 1,000 mg In 85.041 95.922 37.852 Empty Bag 1 bag @ 5 MCG/ KG/MIN 1.551 mls/hr IV . Q24H [facility] Rx#:[id number] Tube Feeding 60 168 28 Other 30 60 Output: Urine 280 250 195 Other: Voiding Method Indwelling Catheter Indwelling Catheter Indwelling Catheter Patient is sedated She is on the vent Examination of the heart S1 and S2 and Examination lungs bilateral breath sounds are heard Abdomen is soft nontender Examination of extremities shows edema 2+ bilaterally upper and lower extremities PHARMACY TECHNICIAN TRAINEE exam cannot be performed Results - Lab Results Most recent lab results ABG pH 7.49 (7.35-7.45) H 06/09/21 06:04 ABG pCO2 31 mmHg (35-45) L 06/09/21 06:04 ABG pO2 167 mmHg (83-108) H 06/09/21 06:04 ABG HCO3 23 mmol/L (21-25) 06/09/21 06:04 ABG O2 Saturation 99.3 % (94-97) H 06/09/21 06:04 Calcium 7.9 mg/dL (8.4-10.2) L 06/09/21 07:44 Phosphorus 3.1 mg/dL (2.5-4.5) 06/09/21 07:44 Magnesium 1.8 mg/dL (1.6-2.3) 06/09/21 07:44 06/09/21 07:44 06/09/21 07:44 Assessment and Plan Assessment: 1. Acute kidney injury, nonoliguric, ischemic ATN status post cardiac arrest. 2. Volume overload, will repeat IV Lasix 3. Status post cardiac arrest 4. Coronary artery disease with history of coronary artery bypass surgery. Troponin was elevated. Patient is being followed by cardiology. She did have CPR. 5. Cardiomyopathy with ejection fraction 40-45% with severely dilated left atrium Plan: Repeat IV Lasix Decrease IV fluids Continue to avoid nephrotoxic agents Repeat labs in a.m.
[2021-06-09] MEDS: PIPERACILLIN-TAZOBACTAM 3.375 GM in SODIUM CHLORIDE 0.9% 100 ML IVPB SCH ×2 (13:10→20:17)
[2021-06-09 16:21] LABS: Glucose,Whole Blood 255 mg/dL (75-99)
[2021-06-09] MEDS: HEPARIN SODIUM 1,000 UN/ML (10ML VL) IV PRN (16:26)
[2021-06-09 17:47] LABS: Glucose,Whole Blood 287 mg/dL (75-99)
[2021-06-09] MEDS: AMIODARONE 450 MG in DEXTROSE 5% IN WATER 250 ML IV SCH ×2 (17:53)
--- NOTE | 2021-06-09 18:58 | P.PN ---
Subjective This is a pleasant 75 years old female with past medical history of diabetes mellitus, hypertension, coronary artery disease status post CABG. Was unresponsive on the presentation, she was severely dyspneic earlier when she was found by EMS and hypotensive with blood pressure 72/53 on admission, heart rate 69, breathing rate 14 and saturation 92% of oxygen In the ER she became pulseless, bradycardic and PEA, and then she experience 10- 15 minutes of ACS protocol in the emergency room followed by spontaneous return of circulation. Patient was intubated and placed on mechanical ventilation Labs showed leukocytosis with 13.8, rest of CBC is unremarkable. INR is 1.3, PTT is 25.8. On admission pH was 7.1 with pCO2 47 and pO2 64, repeat ABG this morning showing pH 7.4, pCO2 30 which is low and pO2 of 193. Sodium is 132, creatinine 1.0 with GFR is 52, on admission creatinine was 1.2 Lactic acid high 4.9 and 4.5 currently was 19.4 on admission, liver enzymes slightly elevated with AST 172, ALT 99 but normal bilirubin, troponin is high 0.4, proBNP is 4900 EKG showing normal sinus rhythm with short IL interval, rate of 72 [address] QTC [address] depression on the lateral blades In the emergency room patient was resuscitated with IV fluids, started on heparin drip, as well as aspirin and Protonix Cardiology and pulmonary team consulted Patient current PEEP stent, FiO2 of 55%, she is on heparin drip, monitor showing sinus rhythm at 60/m. Neely catheter in place with yellow urine. No NG tube in place Chest x-ray: Improving bilateral lung infiltrates, small bilateral pleural effusions 06/09/2021 Patient remains in the ICU, during the morning rounds she was still intubated and on mechanical ventilation however through the day she got extubated and placed on high flow nasal cannula with 60 liter per minute and FiO2 of 90%. Chest x-ray showing bilateral multifocal edema versus infiltrate. WBCs 14.3, hemoglobin dropped 13 down to 11.1. Creatinine went up 1.3-1.5, lactic acid still elevated 2.9, liver enzymes moderately elevated around 300s. Also patient had low-grade fever today of 100.4. Portcalcitonin elevated at 8.3, sputum cultures pending Patient has multiple ALLERGIES which limits his antibiotic use, however she started on Zosyn. Also she is on heparin drip and amiodarone drip her nurse licensed practical who followed the patient closely nephrology and pulmonology input is appreciated. And they monitor the patient closely Review of systems: N/a, patient was still intubated and tired and could not provide information Active Medications Generic Name Dose Route Start Last Admin Trade Name Freq PRN Reason Stop Dose Admin Albuterol/Ipratropium 3 ml 06/08/21 08:00 06/09/21 15:48 Ipratropium-Albuterol 3 Ml Neb INHALATION 3 ml RT-Q4H [facility] Administration Aspirin 325 mg 06/08/21 09:00 06/09/21 08:41 Aspirin 325 Mg Tab PO 325 mg DAILY [facility] Administration Heparin Sodium (Porcine) 0 unit 06/09/21 16:19 06/09/21 16:26 Heparin Sodium 1,000 Un/Ml (10ml Vl) IV 1,500 unit PER PROTOCOL PRN Administration Low PTT Protocol Heparin Sodium/Sodium Chloride 250 mls @ 6.205 mls/hr 06/07/21 23:00 06/09/21 16:06 25,000 unit/ Sodium Chloride IV 17 units/kg/hr .Q24H [facility] 8.791 mls/hr Titration Protocol 12 UNITS/KG/HR Propofol 1,000 mg/ IV Solution 100 mls @ 1.551 mls/hr 06/08/21 03:00 06/09/21 09:38 IV 15 mcg/kg/min .Q24H [facility] 4.654 mls/hr Titration Protocol 5 MCG/KG/MIN Sodium Chloride 1,000 mls @ 50 mls/hr 06/08/21 08:15 06/09/21 08:41 Saline 0.9% IV 75 mls/hr .Q20H [facility] Administration Piperacillin Sod/Tazobactam 100 mls @ 25 mls/hr 06/09/21 12:00 06/09/21 13:10 Sod 3.375 gm/ Sodium Chloride IVPB 25 mls/hr Q8H [facility] Administration Protocol Amiodarone HCl 450 mg/ 250 mls @ 16.667 mls/hr 06/09/21 18:15 06/09/21 17:53 Dextrose/Water IV 06/10/21 12:14 0.5 mg/min .Q15H [facility] 16.667 mls/hr Administration Protocol 0.5 MG/MIN Insulin Aspart 0 unit 06/08/21 04:00 06/09/21 17:53 Insulin Aspart (Novolog) 100 Unit/Ml Vial SQ 5 unit Q2HR [facility] Administration Protocol Miscellaneous Information 1 each 06/09/21 09:19 Magnesium Replacement Protocol 1 Each Misc MISCELLANE DAILY PRN Per Protocol Protocol Morphine Sulfate 4 mg 06/08/21 00:02 Morphine Sulfate 4 Mg/Ml Syringe IV Q4HR PRN Pain Scale 8 to 10 Naloxone HCl 0.2 mg 06/08/21 00:02 Naloxone 0.4 Mg/Ml 1 Ml Vial IV Q2M PRN Opioid Reversal Pantoprazole Sodium 40 mg 06/08/21 09:00 06/09/21 08:41 Pantoprazole 40 Mg/10 Ml Vial IV 40 mg DAILY [facility] Administration Objective - Vital Signs Vital signs: Vital Signs Temp 98.8 F 06/09/21 08:00 Pulse 112 H 06/09/21 11:34 Resp 33 H 06/09/21 11:00 BP 122/55 06/09/21 11:00 Pulse Ox 88 L 06/09/21 11:29 Intake & Output 06/08/21 06/09/21 06/09/21 18:59 06:59 18:59 Intake Total 5055.389 2129.622 702.339 Output Total 310 395 195 Balance 1599.082 947.622 507.339 Weight 60.6 kg Intake: Intake, IV Titration 2492.170 9810.622 674.339 Amount Heparin Sod,Pork in 0.45% 211.487 NaCl 25,000 unit In 0.45 % NaCl 1 250ml.bag @ 12 UNITS/KG/HR 6.205 mls/hr IV .Q24H [facility] Rx#: [id number] Magnesium Sulfate-D5w Pmx 200 1 gm In Dextrose/Water 1 100ml.bag @ 100 mls/hr IVPB Q1H [facility] Rx#: [id number] Sodium Chloride 0.9% 1, 825 900 225 000 ml @ 75 mls/hr IV . [id number] [facility] Rx#:[id number] Sodium Chloride 0.9% 1, 1000 000 ml @ 999 mls/hr IV . Q1H1M [facility] Rx#:[id number] propofoL 1,000 mg In 84.082 124.622 37.852 Empty Bag 1 bag @ 5 MCG/ KG/MIN 1.551 mls/hr IV . Q24H [facility] Rx#:[id number] Tube Feeding 228 28 Other 90 Output: Urine 310 395 195 Other: Voiding Method Indwelling Catheter Indwelling Catheter Indwelling Catheter # Bowel Movements 0 - Exam -GENERAL: The patient is intubated and sedated HEENT: Pupils are round and equally reacting to light. EOMI. No scleral icterus. No conjunctival pallor. Normocephalic, atraumatic. No pharyngeal erythema. No thyromegaly. CARDIOVASCULAR: S1 and S2 present. No murmurs, rubs, or gallops. -PULMONARY: Chest is clear to auscultation, no wheezing or crackles. Decreased breath sounds on both sides with bilateral crackles ABDOMEN: Soft, nontender, nondistended, normoactive bowel sounds. No palpable organomegaly. MUSCULOSKELETAL: No joint swelling or deformity. EXTREMITIES: No cyanosis, clubbing, or pedal edema. NEUROLOGICAL: Gross neurological examination did not reveal any focal deficits. SKIN: No rashes. no petechiae. - Labs CBC & Chem 7: 06/09/21 07:44 06/09/21 07:44 Labs: Abnormal Lab Results - Last 24 Hours (Table) 06/08/21 06/08/21 06/08/21 Range/Units 10:43 10:43 10:43 WBC (3.8-10.6) k/uL RBC (3.80-5.40) m/uL Hgb (11.4-16.0) gm/dL Hct (34.0-46.0) % Neutrophils # (1.3-7.7) k/uL APTT (22.0-30.0) sec ABG pH (7.35-7.45) ABG pCO2 (35-45) mmHg ABG pO2 (83-108) mmHg ABG O2 Saturation (94-97) % Sodium (137-145) mmol/L Chloride (98-107) mmol/L Carbon Dioxide (22-30) mmol/L BUN (7-17) mg/dL Creatinine (0.52-1.04) mg/dL Glucose (74-99) mg/dL POC Glucose (mg/dL) (75-99) mg/dL Hemoglobin A1c 7.2 H (0.0-6.0) % Plasma Lactic Acid [place] (0.7-2.0) mmol/L Calcium (8.4-10.2) mg/dL AST (14-36) U/L ALT (4-34) U/L Troponin I 22.000 H* (0.000-0.034) ng/mL Total Protein (6.3-8.2) g/dL Albumin (3.5-5.0) g/dL Procalcitonin 8.36 H (0.02-0.09) ng/mL 06/08/21 06/08/21 06/08/21 Range/Units 12:26 13:39 16:29 WBC (3.8-10.6) k/uL RBC (3.80-5.40) m/uL Hgb (11.4-16.0) gm/dL Hct (34.0-46.0) % Neutrophils # (1.3-7.7) k/uL APTT (22.0-30.0) sec ABG pH (7.35-7.45) ABG pCO2 (35-45) mmHg ABG pO2 (83-108) mmHg ABG O2 Saturation (94-97) % Sodium (137-145) mmol/L Chloride (98-107) mmol/L Carbon Dioxide (22-30) mmol/L BUN (7-17) mg/dL Creatinine (0.52-1.04) mg/dL Glucose (74-99) mg/dL POC Glucose (mg/dL) 236 H 183 H 61 L (75-99) mg/dL Hemoglobin A1c (0.0-6.0) % Plasma Lactic Acid [place] (0.7-2.0) mmol/L Calcium (8.4-10.2) mg/dL AST (14-36) U/L ALT (4-34) U/L Troponin I (0.000-0.034) ng/mL Total Protein (6.3-8.2) g/dL Albumin (3.5-5.0) g/dL Procalcitonin (0.02-0.09) ng/mL 06/08/21 06/08/21 06/08/21 Range/Units 16:31 16:31 16:31 WBC (3.8-10.6) k/uL RBC (3.80-5.40) m/uL Hgb (11.4-16.0) gm/dL Hct (34.0-46.0) % Neutrophils # (1.3-7.7) k/uL APTT (22.0-30.0) sec ABG pH (7.35-7.45) ABG pCO2 (35-45) mmHg ABG pO2 (83-108) mmHg ABG O2 Saturation (94-97) % Sodium 135 L (137-145) mmol/L Chloride 108 H (98-107) mmol/L Carbon Dioxide (22-30) mmol/L BUN 31 H (7-17) mg/dL Creatinine 1.37 H (0.52-1.04) mg/dL Glucose 123 H (74-99) mg/dL POC Glucose (mg/dL) (75-99) mg/dL Hemoglobin A1c (0.0-6.0) % Plasma Lactic Acid [place] 2.9 H* (0.7-2.0) mmol/L Calcium 8.1 L (8.4-10.2) mg/dL AST (14-36) U/L ALT (4-34) U/L Troponin I 37.600 H* (0.000-0.034) ng/mL Total Protein (6.3-8.2) g/dL Albumin (3.5-5.0) g/dL Procalcitonin (0.02-0.09) ng/mL 06/08/21 06/08/21 06/08/21 Range/Units 17:01 18:40 21:54 WBC (3.8-10.6) k/uL RBC (3.80-5.40) m/uL Hgb (11.4-16.0) gm/dL Hct (34.0-46.0) % Neutrophils # (1.3-7.7) k/uL APTT (22.0-30.0) sec ABG pH (7.35-7.45) ABG pCO2 (35-45) mmHg ABG pO2 (83-108) mmHg ABG O2 Saturation (94-97) % Sodium (137-145) mmol/L Chloride (98-107) mmol/L Carbon Dioxide (22-30) mmol/L BUN (7-17) mg/dL Creatinine (0.52-1.04) mg/dL Glucose (74-99) mg/dL POC Glucose (mg/dL) 70 L 47 L 100 H (75-99) mg/dL Hemoglobin A1c (0.0-6.0) % Plasma Lactic Acid [place] (0.7-2.0) mmol/L Calcium (8.4-10.2) mg/dL AST (14-36) U/L ALT (4-34) U/L Troponin I (0.000-0.034) ng/mL Total Protein (6.3-8.2) g/dL Albumin (3.5-5.0) g/dL Procalcitonin (0.02-0.09) ng/mL 06/09/21 06/09/21 06/09/21 Range/Units 02:07 04:49 05:54 WBC (3.8-10.6) k/uL RBC (3.80-5.40) m/uL Hgb (11.4-16.0) gm/dL Hct (34.0-46.0) % Neutrophils # (1.3-7.7) k/uL APTT (22.0-30.0) sec ABG pH (7.35-7.45) ABG pCO2 (35-45) mmHg ABG pO2 (83-108) mmHg ABG O2 Saturation (94-97) % Sodium (137-145) mmol/L Chloride (98-107) mmol/L Carbon Dioxide (22-30) mmol/L BUN (7-17) mg/dL Creatinine (0.52-1.04) mg/dL Glucose (74-99) mg/dL POC Glucose (mg/dL) 153 H 169 H 198 H (75-99) mg/dL Hemoglobin A1c (0.0-6.0) % Plasma Lactic Acid [place] (0.7-2.0) mmol/L Calcium (8.4-10.2) mg/dL AST (14-36) U/L ALT (4-34) U/L Troponin I (0.000-0.034) ng/mL Total Protein (6.3-8.2) g/dL Albumin (3.5-5.0) g/dL Procalcitonin (0.02-0.09) ng/mL 06/09/21 06/09/21 06/09/21 Range/Units 06:04 07:44 07:44 WBC 14.3 H (3.8-10.6) k/uL RBC 3.74 L (3.80-5.40) m/uL Hgb 11.1 L (11.4-16.0) gm/dL Hct 33.6 L (34.0-46.0) % Neutrophils # 12.5 H (1.3-7.7) k/uL APTT 33.7 H (22.0-30.0) sec ABG pH 7.49 H (7.35-7.45) ABG pCO2 31 L (35-45) mmHg ABG pO2 167 H (83-108) mmHg ABG O2 Saturation 99.3 H (94-97) % Sodium (137-145) mmol/L Chloride (98-107) mmol/L Carbon Dioxide (22-30) mmol/L BUN (7-17) mg/dL Creatinine (0.52-1.04) mg/dL Glucose (74-99) mg/dL POC Glucose (mg/dL) (75-99) mg/dL Hemoglobin A1c (0.0-6.0) % Plasma Lactic Acid [place] (0.7-2.0) mmol/L Calcium (8.4-10.2) mg/dL AST (14-36) U/L ALT (4-34) U/L Troponin I (0.000-0.034) ng/mL Total Protein (6.3-8.2) g/dL Albumin (3.5-5.0) g/dL Procalcitonin (0.02-0.09) ng/mL 06/09/21 06/09/21 06/09/21 Range/Units 07:44 08:43 11:36 WBC (3.8-10.6) k/uL RBC (3.80-5.40) m/uL Hgb (11.4-16.0) gm/dL Hct (34.0-46.0) % Neutrophils # (1.3-7.7) k/uL APTT (22.0-30.0) sec ABG pH (7.35-7.45) ABG pCO2 (35-45) mmHg ABG pO2 (83-108) mmHg ABG O2 Saturation (94-97) % Sodium 135 L (137-145) mmol/L Chloride 111 H (98-107) mmol/L Carbon Dioxide 21 L (22-30) mmol/L BUN 34 H (7-17) mg/dL Creatinine 1.52 H (0.52-1.04) mg/dL Glucose 166 H (74-99) mg/dL POC Glucose (mg/dL) 170 H 216 H (75-99) mg/dL Hemoglobin A1c (0.0-6.0) % Plasma Lactic Acid [place] (0.7-2.0) mmol/L Calcium 7.9 L (8.4-10.2) mg/dL AST 379 H (14-36) U/L ALT 329 H (4-34) U/L Troponin I (0.000-0.034) ng/mL Total Protein 4.8 L (6.3-8.2) g/dL Albumin 2.3 L (3.5-5.0) g/dL Procalcitonin (0.02-0.09) ng/mL Microbiology - Last 24 Hours (Table) 06/08/21 01:42 Gram Stain - Preliminary Sputum Sputum Culture - Preliminary Assessment and Plan Assessment: Bilateral pneumonia. With possible elements of pulmonary congestion. Patient was unresponsive on admission, hypotensive and pulseless underwent ACS protocol for about 10-15 minutes per documentation Acute hypoxic respiratory failure, status post extubation, was on mechanical ventilation Elevated troponin, with lateral lead ST depression. Suspicious for non-STEMI Mild acute kidney injury Elevated lactic acid Diabetes mellitus, with elevated hemoglobin A1c of 7.2% on admission Hypertension History of coronary artery disease status post CABG Plan: this is a 75 years old female who presents with hypotension, unresponsiveness and respiratory failure, pneumonia and non-STEMI start the patient on Zosyn and follow-up culture results Continue with high flow nasal cannula and monitored breathing carefully. Pulmonary/critical care consult Continue with heparin drip and aspirin Cardiology consult continue with insulin sliding scale and monitor glucose closely Continue with gentle hydration and diuretics as per nephrology team will follow the case closely Labs and medication were reviewed.. Continue same treatment. Continue with symptomatic treatment. Resume home medication. Monitor lytes and vitals. DVT and GI prophylaxis. Further recommendations as per clinical course of the patient DVT prophylaxis: heparin GI Prophylaxis: Ppi Prognosis is guarded
[2021-06-09 20:18] LABS: Glucose,Whole Blood 207 mg/dL (75-99)
[2021-06-09 20:47] VITALS: TEMP 98.3
[2021-06-09 22:48] LABS: Glucose,Whole Blood 140 mg/dL (75-99)
[2021-06-10] MEDS: IPRATROPIUM-ALBUTEROL 3 ML NEB INHALATION SCH ×4 (00:13→11:31)
[2021-06-10 00:14] LABS: Glucose,Whole Blood 138 mg/dL (75-99)
[2021-06-10] MEDS: INSULIN ASPART (NovoLOG) 100 UNIT/ML VIAL SQ SCH ×5 (00:30→08:49)
[2021-06-10 02:52] LABS: Glucose,Whole Blood 124 mg/dL (75-99)
[2021-06-10] MEDS: MORPHINE SULFATE 4 MG/ML SYRINGE IV PRN ×2 (04:25→09:08)
[2021-06-10] MEDS ORDERED: LORazepam 2 MG/ML INJ IV PRN (04:27)
[2021-06-10] MEDS: SODIUM CHLORIDE 0.9% 1,000 ML IV SCH (04:33)
[2021-06-10 04:38] LABS: Glucose,Whole Blood 170 mg/dL (75-99)
[2021-06-10] MEDS: PIPERACILLIN-TAZOBACTAM 3.375 GM in SODIUM CHLORIDE 0.9% 100 ML IVPB SCH (05:09)
--- NOTE | 2021-06-10 05:09 | XR ---
EXAMINATION TYPE: XR chest 1V portable DATE OF EXAM: 06/10/2021 COMPARISON: 06/08/2021 HISTORY: Tube placement TECHNIQUE: Single view FINDINGS: There is moderate pulmonary interstitial and airspace edema. There are sternal wires. No ev idence of endotracheal tube. No evidence of nasogastric tube. There is blunting of the costophrenic a ngles. IMPRESSION: Congestive heart failure with pulmonary edema and pleural effusions appear slightly worse than recent exam. No tubing is seen.
[2021-06-10] MEDS ORDERED: FUROSEMIDE 10 MG/ML 10 ML VIAL IV STA (05:37)
[2021-06-10 05:58] LABS: Glucose,Whole Blood 155 mg/dL (75-99)
[2021-06-10 07:29] LABS: Basophils % (A) 0 %; Eosinophils % (A) 0 %; HCT 38.7 % (34.0-46.0); HGB 11.8 gm/dL (11.4-16.0); Hypochromasia Moderate; Lymphocytes # (A) 0.6 k/uL (1.0-4.8); Lymphocytes % (A) 3 %; MCH 28.3 pg (25.0-35.0); MCHC 30.5 g/dL (31.0-37.0); MCV 92.5 fL (80.0-100.0); Mean Platelet Volume 8.7; Monocytes # (A) 0.5 k/uL (0-1.0); Monocytes % (A) 3 %; Neutrophils # (A) 15.9 k/uL (1.3-7.7); Neutrophils % (A) 93 %; Platelet Count 308 k/uL (150-450); RBC 4.19 m/uL (3.80-5.40); RDW 13.5 % (11.5-15.5); WBC 17.2 k/uL (3.8-10.6)
[2021-06-10 07:41] LABS: Calcium 7.9 mg/dL (8.4-10.2); Magnesium 2.3 mg/dL (1.6-2.3); Potassium 3.5 mmol/L (3.5-5.1)
[2021-06-10] MEDS: ASPIRIN 325 MG TAB PO SCH (08:15)
[2021-06-10] MEDS: PANTOPRAZOLE 40 MG/10 ML VIAL IV SCH (08:20)
[2021-06-10] MEDS: HEPARIN SODIUM 1,000 UN/ML (10ML VL) IV PRN (08:20)
[2021-06-10] MEDS ORDERED: Potassium Replacement Protocol 1 EACH MISC MISCELLANE PRN (08:36)
--- NOTE | 2021-06-10 08:40 | P.PN ---
Subjective HISTORY OF PRESENTING ILLNESS Patient is a 75-year-old female with a history of diabetes mellitus type 1, coronary artery disease status post CABG 2000, hypertension, hyperlipidemia. Patient currently intubated and sedated and history is supplied the chart. Apparently patient was extremely short of breath speaking one-word sentences and then had a cardiac arrest and became bradycardic. By the time patient came to emergency department patient was still noted to be PEA and apparently another 15 minutes of CPR was performed with eventual ROSC. Patient has been on a heparin drip in ICU as well as propofol and otherwise remains on ventilator with FiO2 55% and a PEEP of 10. There is no report of any chest pain or pressure noted before and appears mainly shortness breath. Initial EKG shows diffuse ST depressions in the lateral leads. Initial blood work shows white blood cell count 13.8, hemoglobin 13.0, INR 1.3, potassium 5.7, creatinine 1.2, lactic acid 19, AST 172, ALT 99, calcium 10.8, troponin 0.45, proBNP 4900, repeat lactic ac id 4.9, troponin 5.8. Family made patient DO NOT RESUSCITATE currently. 06/09 Patient seen and examined. Patient remains intubated and sedated. Weaning of sedation attempted this morning and patient somewhat arousable. Reported following some commands. FiO2 40% with a PEEP of 10. Blood pressures remain stable. Troponins noted to be increasing however EKG without any significant changes. Echo shows EF 40-45% with concern of basilar inferior hypokinesis and severe mitral regurgitation. 06/10 Patient seen and examined. Patient was extubated and somewhat near baseline neurologic status however worsened respiratory distress overnight and was placed back on BiPAP 100% FiO2 and a PEEP of 10 and also given morphine and currently somnolent. Family has been discussing possible comfort measures however also if this is something reversible would be agreeable to continuing with current ther apy. PHYSICAL EXAMINATION Vital signs reviewed. CONSTITUTIONAL: No apparent distress, ill appearing, on BiPAP HEENT: Head is normocephalic. Pupils are equal, round. Sclerae anicteric. Mucous membranes of the mouth are moist. No JVD. No carotid bruit. CHEST EXAMINATION: Lungs are clear to auscultation. No chest wall tenderness is noted on palpation or with deep breathing. HEART EXAMINATION: Regular rate and rhythm. S1, S2 heard. No murmurs, gallops or rub. ABDOMEN: Soft, nontender. Positive bowel sounds. EXTREMITIES: 2+ peripheral pulses, no lower extremity edema and no calf tenderness. NEUROLOGIC EXAMINATION: Patient is sedated ASSESSMENT 1. Cardiac arrest of unclear etiology. Possible type I PA versus primary respiratory etiology. 15 minutes of downtime and emergency department plus time and EMS 2. Non-STEMI unclear type I versus type II mechanism 3. Coronary artery disease with history of CABG 4. Diabetes mellitus type 1 with uncontrolled glucose 5. Altered mental status, rule out anoxic brain injury 6. Bradycardia likely related to cardiac arrest, currently improved 7. Severe mitral regurgitation 8. Acute on chronic systolic heart failure EF 40-45% 9. Acute kidney injury 10. New-onset paroxysmal atrial fibrillation PLAN Patient's x-ray does show infiltrates however per family patient had been having increased orthopnea and dyspnea or the prior few days. Suspect some component of heart failure and possibly exacerbated by decreased EF 40-45% as well as se billy mitral regurgitation. She does have severe CAD with history of CABG and high possibility of type II mechanism despite severely elevated troponin. She is denying any current angina-type symptoms. Discussed possible consideration of more aggressive workup with heart catheterization, EVAN and even mitral clip if mitral regurgitation felt to be flail however appears more secondary mitral regurgitation and may improve with diuretics. Suspect some component of pneumonia possible aspiration pneumonia around intubation however additional heart failure component. Monitor response of diuretics twice daily and continue with amiodarone for A. fib with RVR. Change to oral once she is tolerating oral medications. Prognosis guarded. Objective - Vital Signs Vital signs: Vital Signs Temp 98.3 F 06/10/21 04:00 Pulse 98 06/10/21 08:26 Resp 27 H 06/10/21 07:00 BP 126/66 06/10/21 07:00 Pulse Ox 94 L 06/10/21 07:00 Intake & Output 06/09/21 06/10/21 06/10/21 18:59 06:59 18:59 Intake Total 1254.311 650 143.44 Output Total 1419 775 Balance -164.689 -125 143.44 Weight 60.6 kg 63 kg Intake: Intake, IV Titration 1226.311 650 143.44 Amount Heparin Sod,Pork in 0.45% 263.459 143.44 NaCl 25,000 unit In 0.45 % NaCl 1 250ml.bag @ 12 UNITS/KG/HR 6.205 mls/hr IV .Q24H [facility] Rx#: [id number] Magnesium Sulfate-D5w Pmx 200 1 gm In Dextrose/Water 1 100ml.bag @ 100 mls/hr IVPB Q1H [facility] Rx#: [id number] Sodium Chloride 0.9% 1, 725 650 000 ml @ 50 mls/hr IV . Q20H [facility] Rx#:[id number] propofoL 1,000 mg In 37.852 Empty Bag 1 bag @ 5 MCG/ KG/MIN 1.551 mls/hr IV . Q24H [facility] Rx#:[id number] Tube Feeding 28 Output: Urine 1419 775 Other: Voiding Method Indwelling Catheter Indwelling Catheter - Labs CBC & Chem 7: 06/10/21 06:57 06/10/21 06:57 Labs: Abnormal Lab Results - Last 24 Hours (Table) 06/09/21 06/09/21 06/09/21 Range/Units 08:43 11:36 15:08 WBC (3.8-10.6) k/uL MCHC (31.0-37.0) g/dL Neutrophils # (1.3-7.7) k/uL Lymphocytes # (1.0-4.8) k/uL APTT 36.8 H (22.0-30.0) sec Chloride (98-107) mmol/L BUN (7-17) mg/dL Creatinine (0.52-1.04) mg/dL Glucose (74-99) mg/dL POC Glucose (mg/dL) 170 H 216 H (75-99) mg/dL Calcium (8.4-10.2) mg/dL 06/09/21 06/09/21 06/09/21 Range/Units 16:20 17:46 20:17 WBC (3.8-10.6) k/uL MCHC (31.0-37.0) g/dL Neutrophils # (1.3-7.7) k/uL Lymphocytes # (1.0-4.8) k/uL APTT (22.0-30.0) sec Chloride (98-107) mmol/L BUN (7-17) mg/dL Creatinine (0.52-1.04) mg/dL Glucose (74-99) mg/dL POC Glucose (mg/dL) 255 H 287 H 207 H (75-99) mg/dL Calcium (8.4-10.2) mg/dL 06/09/21 06/10/21 06/10/21 Range/Units 22:46 00:12 00:50 WBC (3.8-10.6) k/uL MCHC (31.0-37.0) g/dL Neutrophils # (1.3-7.7) k/uL Lymphocytes # (1.0-4.8) k/uL APTT 47.2 H (22.0-30.0) sec Chloride (98-107) mmol/L BUN (7-17) mg/dL Creatinine (0.52-1.04) mg/dL Glucose (74-99) mg/dL POC Glucose (mg/dL) 140 H 138 H (75-99) mg/dL Calcium (8.4-10.2) mg/dL 06/10/21 06/10/21 06/10/21 Range/Units 02:51 04:36 05:56 WBC (3.8-10.6) k/uL MCHC (31.0-37.0) g/dL Neutrophils # (1.3-7.7) k/uL Lymphocytes # (1.0-4.8) k/uL APTT (22.0-30.0) sec Chloride (98-107) mmol/L BUN (7-17) mg/dL Creatinine (0.52-1.04) mg/dL Glucose (74-99) mg/dL POC Glucose (mg/dL) 124 H 170 H 155 H (75-99) mg/dL Calcium (8.4-10.2) mg/dL 06/10/21 06/10/21 06/10/21 Range/Units 06:57 06:57 06:57 WBC 17.2 H (3.8-10.6) k/uL MCHC 30.5 L (31.0-37.0) g/dL Neutrophils # 15.9 H (1.3-7.7) k/uL Lymphocytes # 0.6 L (1.0-4.8) k/uL APTT 36.1 H (22.0-30.0) sec Chloride 109 H (98-107) mmol/L BUN 33 H (7-17) mg/dL Creatinine 1.32 H (0.52-1.04) mg/dL Glucose 135 H (74-99) mg/dL POC Glucose (mg/dL) (75-99) mg/dL Calcium 7.9 L (8.4-10.2) mg/dL
[2021-06-10 08:46] LABS: Glucose,Whole Blood 127 mg/dL (75-99)
[2021-06-10] MEDS ORDERED: FUROSEMIDE 10 MG/ML 10 ML VIAL IV SCH (09:00)
[2021-06-10] MEDS ORDERED: POTASSIUM CHLORIDE 10 MEQ in WATER FOR INJECTION 1 100ML.BAG IVPB SCH (09:00)
[2021-06-10] MEDS ORDERED: MORPHINE SULFATE (100 MG/2 ML) 100 MG in SODIUM CHLORIDE 0.9% 100 ML IV SCH (09:30)
[2021-06-10] MEDS: AMIODARONE 450 MG in DEXTROSE 5% IN WATER 250 ML IV SCH ×2 (10:09)
--- NOTE | 2021-06-10 10:24 | P.PN ---
Subjective Progress Note Date: 06/10/21 Principal diagnosis: Cardiopulmonary arrest. Pulmonary consult dated 06/08/2021. 75-year-old female who apparently was brought into the emergency room by EMS. The patient had mental status changes, with profoundly short of breath, and a chest x-ray which showed nearly complete white out of both lungs, and had severe bradycardia. The patient subsequently had a cardiac arrest in the ER. He was intubated in the ER, and she had about a 10 minute or so resuscitation. She luca arently had pulseless electrical activity in the emergency room, as well as bradycardia. I did speak to the ER physician last night. Initially, the patient was a DO NOT RESUSCITATE patient. Apparently after speaking to the daughter, today, the nurse stated that the daughter wanted the patient to be a full code. I did speak to the daughter on the phone, who spoke to her brother, and her father, and the patient was made a DO NOT RESUSCITATE. The patient has a history of diabetes, hyperlipidemia, CAD, CVA, hypertension, and previous bypass surgery. The patient is currently on the ventilator. She is on volume assist control mode, rate 26, tidal volume 400, FiO2 60%, EPAP of 10. Blood gas es show pO2 of 193, pCO2 of 30, and a pH is 7.46. These blood gases were done on 100%. The patient is on propofol at 20 mcg/kg/m, and heparin via weightbased protocol. The patient is also getting saline at 75 mL an hour. Laboratory data includes a white count 13.8, hemoglobin 13, hematocrit 45.4, and platelet count 169,000. PTT is 44.4. Sodium 132, potassium 4.7, chlorides 104, CO2 20, anion gap 8, BUN 26, and creatinine 1.05. Initial glucose was 476. The lactic acid went from 19.4 down to 4.5. The phosphorus was 9.6, the repeat was 5.2. N- terminal proBNP was 4900. Troponins were 0.459 and 5.880. AST was 172. ALT was 99. The initial chest x-ray showed diffuse bilateral infiltrates consistent with fluid overload/CHF, but the more recent chest x-ray shows some improvement in the volume status. Progress note dated 06/09/2021. 75-year-old female, again seen in room 261. We saw her in consultation yesterday, and she was cardiopulmonary arrest patient, having been intubated in the emergency department. She initially was found to have bradycardia, and subsequent to that, had a cardiopulmonary arrest, and was seen by one of the ER physicians. She was transferred up to the intensive care unit. She remains on the mechanical ventilator. She is volume assist control mode, rate 26, tidal volume 400, FiO2 40%, and PEEP of 10. Blood gases show pO2 of 167, pCO2 31, and a pH is 7.49. Those blood gases were done on 50% FiO2. The patient remains on heparin via weight aced protocol, propofol at 35 mcg/g/m, saline at 75 mL an hour, and tube feedings with Nepro at 28 mL an hour. White count 14.3, hemoglobin 11.1, hematocrit 33.6, and platelet count 318,000. Sodium 135, potassium 4, chlorides 111, CO2 21, anion gap is 3, BUN 34, and creatinine 1.52. Albumin is 2.3. AST 379, ALT 329. The patient's most recent troponin was 37.6. Chest x-ray shows improving volume status. Progress note dated 06/10/2021. 75-year-old female, again seen in room 261. The patient was seen in consultation 2 days ago. She came into the emergency room, with severe bradycardia, and then subsequently, had a cardiopulmonary arrest. She was intubated in the emergency department, and had about 10 or so minutes of resuscitation. She came to the intensive care unit. Yesterday, she was extubated. The patient is a DO NOT RESUSCITATE patient. Currently, she is on BiPAP, with settings of 12/6 and 100%. The patient looks uncomfortable. Patient is also on amiodarone at 0.5 mg/m, normal saline at 50 mL an hour, and heparin via weight based protocol. The IV will be discontinued. The patient got Lasix earlier today by me. In addition, cardiology will give the patient Lasix, 80 mg twice a day. I did have a long conversation with the family. For the time being, the patient is a DO NOT RESUSCITATE patient. Last night, for a period of time, they made the patient a comfort care patient. Current white count is 17.2, hemoglobin 11.8, hematocrit 38.7, and platelet count 308,000. PTT is 36.1. Sodium 138, potassium 3.5, chlorides 109, CO2 23, anion gap 6, BUN 33, and creatinine 1.32. Calcium 7.9. Chest x-ray is consistent with acute CHF. Objective - Vital Signs Vital signs: Vital Signs Temp 98.3 F 06/10/21 04:00 Pulse 110 H 06/10/21 09:00 Resp 36 H 06/10/21 09:00 BP 131/75 06/10/21 09:00 Pulse Ox 77 L 06/10/21 09:00 Intake & Output 06/09/21 06/10/21 06/10/21 18:59 06:59 18:59 Intake Total 1254.311 650 143.44 Output Total 1419 775 Balance -164.689 -125 143.44 Weight 60.6 kg 63 kg Intake: Intake, IV Titration 1226.311 650 143.44 Amount Heparin Sod,Pork in 0.45% 263.459 143.44 NaCl 25,000 unit In 0.45 % NaCl 1 250ml.bag @ 12 UNITS/KG/HR 6.205 mls/hr IV .Q24H [facility] Rx#: [id number] Magnesium Sulfate-D5w Pmx 200 1 gm In Dextrose/Water 1 100ml.bag @ 100 mls/hr IVPB Q1H [facility] Rx#: [id number] Sodium Chloride 0.9% 1, 725 650 000 ml @ 50 mls/hr IV . Q20H [facility] Rx#:[id number] propofoL 1,000 mg In 37.852 Empty Bag 1 bag @ 5 MCG/ KG/MIN 1.551 mls/hr IV . Q24H [facility] Rx#:[id number] Tube Feeding 28 Output: Urine 1419 775 Other: Voiding Method Indwelling Catheter Indwelling Catheter - Exam Currently on BiPAP. FiO2 is 100%. Saturations are in the mid 70s. The patient is quite tachypnea and dyspnea. HEENT examination is grossly unremarkable. Neck supple. Full range of motion. No adenopathy thyromegaly or neck vein distention. Cardiovascular examination reveals regular rhythm rate. S1-S2 normal. No S3 or S4. No discernible murmur noted. Heart rate is 110 bpm. Heart sounds are distant. Lungs reveal diffuse bilateral rhonchi. Bilateral crackles are appreciated. No wheezes. Breath sounds equal bilaterally. Abdomen soft without bowel sounds. No masses or tenderness. Extremities are intact. No cyanosis clubbing or edema. Skin is without rash or lesion. Neurologic examination reveals a very lethargic, somnolent, poorly responsive patient. - Labs CBC & Chem 7: 06/10/21 06:57 06/10/21 06:57 Labs: Abnormal Lab Results - Last 24 Hours (Table) 06/09/21 06/09/21 06/09/21 Range/Units 11:36 15:08 16:20 WBC (3.8-10.6) k/uL MCHC (31.0-37.0) g/dL Neutrophils # (1.3-7.7) k/uL Lymphocytes # (1.0-4.8) k/uL APTT 36.8 H (22.0-30.0) sec Chloride (98-107) mmol/L BUN (7-17) mg/dL Creatinine (0.52-1.04) mg/dL Glucose (74-99) mg/dL POC Glucose (mg/dL) 216 H 255 H (75-99) mg/dL Calcium (8.4-10.2) mg/dL 06/09/21 06/09/21 06/09/21 Range/Units 17:46 20:17 22:46 WBC (3.8-10.6) k/uL MCHC (31.0-37.0) g/dL Neutrophils # (1.3-7.7) k/uL Lymphocytes # (1.0-4.8) k/uL APTT (22.0-30.0) sec Chloride (98-107) mmol/L BUN (7-17) mg/dL Creatinine (0.52-1.04) mg/dL Glucose (74-99) mg/dL POC Glucose (mg/dL) 287 H 207 H 140 H (75-99) mg/dL Calcium (8.4-10.2) mg/dL 06/10/21 06/10/21 06/10/21 Range/Units 00:12 00:50 02:51 WBC (3.8-10.6) k/uL MCHC (31.0-37.0) g/dL Neutrophils # (1.3-7.7) k/uL Lymphocytes # (1.0-4.8) k/uL APTT 47.2 H (22.0-30.0) sec Chloride (98-107) mmol/L BUN (7-17) mg/dL Creatinine (0.52-1.04) mg/dL Glucose (74-99) mg/dL POC Glucose (mg/dL) 138 H 124 H (75-99) mg/dL Calcium (8.4-10.2) mg/dL 06/10/21 06/10/21 06/10/21 Range/Units 04:36 05:56 06:57 WBC (3.8-10.6) k/uL MCHC (31.0-37.0) g/dL Neutrophils # (1.3-7.7) k/uL Lymphocytes # (1.0-4.8) k/uL APTT (22.0-30.0) sec Chloride 109 H (98-107) mmol/L BUN 33 H (7-17) mg/dL Creatinine 1.32 H (0.52-1.04) mg/dL Glucose 135 H (74-99) mg/dL POC Glucose (mg/dL) 170 H 155 H (75-99) mg/dL Calcium 7.9 L (8.4-10.2) mg/dL 06/10/21 06/10/21 06/10/21 Range/Units 06:57 06:57 08:44 WBC 17.2 H (3.8-10.6) k/uL MCHC 30.5 L (31.0-37.0) g/dL Neutrophils # 15.9 H (1.3-7.7) k/uL Lymphocytes # 0.6 L (1.0-4.8) k/uL APTT 36.1 H (22.0-30.0) sec Chloride (98-107) mmol/L BUN (7-17) mg/dL Creatinine (0.52-1.04) mg/dL Glucose (74-99) mg/dL POC Glucose (mg/dL) 127 H (75-99) mg/dL Calcium (8.4-10.2) mg/dL Assessment and Plan Assessment: Status post cardiopulmonary arrest, with cardiopulmonary resuscitation and return of spontaneous circulation, lasting about 10 minutes or so. The patient demonstrated both bradycardia, and pulseless electrical activity (PEA). Status post intubation and mechanical ventilation for cardiopulmonary arrest, on 06/07/2021, status post extubation on 06/09/2021. Acute myocardial infarction. Acute CHF/pulmonary edema. History of diabetes mellitus. History of CAD, with previous bypass surgery. History of hyperlipidemia. History of hypertension. History of CVA. Plan: Plan dated 06/08/2021. I did have a long conversation with the patient's daughter. Initially, in the emergency department, the patient was made DO NOT RESUSCITATE. Apparently after the nurse spoke to the daughter, the patient was then a full code. I do long conversation with the daughter, who spoke to her brother, and her father. Subsequent to that, and before leaving the intensive care unit, we informed by the nurse, that the patient is now a DO NOT RESUSCITATE patient again. Currently, the patient's on IV heparin, and propofol. I don't believe there is any plans for the patient to go to the catheterization laboratory. Additional recommendations and suggestions are forthcoming. Prognosis is very guarded. We'll continue to follow make recommendations where appropriate. Plan dated 06/09/2021. The patient's chest x-ray has improved. Gas exchange is excellent. The patient will be given a daily interruption of sedation and a spontaneous breathing trial. The patient's labs, x-rays, and medications are all reviewed. The patient is receiving tube feeds. He remains on IV heparin, and propofol. She has been seen by cardiology. Troponins continued to rise. Hopefully, we can get the patient extubated. I did have a long conversation with the daughter yesterday, and the patient is a DO NOT RESUSCITATE. We will continue to follow and make recommendations where appropriate. Prognosis is certainly very guarded. Plan dated 06/10/2021. The patient was extubated yesterday. I did speak to the family, including the daughter Alesha, and the patient's . For the time being, the patient is a DO NOT RESUSCITATE patient. They were leaning towards possible comfort care and at one point last night, the patient was comfort care. I don't believe the patient will do well at all, and is likely that she will succumb to this illness. The patient's chest x-ray shows acute CHF. Her saturations are in the mid 70s on 100%. The family does not want her reintubated. She looks very uncomfortable on BiPAP. Her respiratory rate is in the mid to high 30s. Prognosis is very poor. Time with Patient: Greater than 30
[2021-06-10 11:01] VITALS: BP 108/59; PULSE 36; RESP 7
--- NOTE | 2021-06-11 09:16 | P.DS ---
Providers Date of admission: 06/08/21 00:02 Attending physician: Sharon Harris Consults: 06/08/21 00:02 Consult Physician Routine Consulting Provider: Mason Bedoya Consult Reason/Comments: icu Do you want consulting provider notified?: Yes Consult Physician Routine Consulting Provider: Montse Bucio Consult Reason/Comments: chf Do you want consulting provider notified?: Yes 06/08/21 12:46 Consult Physician Routine Consulting Provider: Cristobal Rodriguez Consult Reason/Comments: s/p cardiac arrest, elevated lactic acids Do you want consulting provider notified?: Yes Primary care physician: [facility] Course: Diagnoses: Bilateral pneumonia. With possible elements of pulmonary congestion. Patient was unresponsive on admission, hypotensive and pulseless underwent ACS protocol for about 10-15 minutes per documentation Acute hypoxic respiratory failure, status post extubation, was on mechanical ventilation Elevated troponin, with lateral lead ST depression. Suspicious for non-STEMI Mild acute kidney injury Elevated lactic acid Diabetes mellitus, with elevated hemoglobin A1c of 7.2% on admission Hypertension History of coronary artery disease status post CABG Hospital course: This is a pleasant 75 years old female with past medical history of diabetes mellitus, hypertension, coronary artery disease status post CABG. Was unresponsive on the presentation, she was severely dyspneic earlier when she was found by EMS and hypotensive with blood pressure 72/53 on admission, heart rate 69, breathing rate 14 and saturation 92% of oxygen In the ER she became pulseless, bradycardic and PEA, and then she experience 10- 15 minutes of ACS protocol in the emergency room followed by spontaneous return of circulation. Patient was intubated and placed on mechanical ventilation Labs showed leukocytosis with 13.8, rest of CBC is unremarkable. INR is 1.3, PTT is 25.8. On admission pH was 7.1 with pCO2 47 and pO2 64, repeat ABG this morning showing pH 7.4, pCO2 30 which is low and pO2 of 193. Sodium is 132, creatinine 1.0 with GFR is 52, on admission creatinine was 1.2 Lactic acid high 4.9 and 4.5 currently was 19.4 on admission, liver enzymes slightly elevated with AST 172, ALT 99 but normal bilirubin, troponin is high 0.4, proBNP is 4900 EKG showing normal sinus rhythm with short [place] interval, rate of 72 [address] QTC [address] depression on the lateral blades In the emergency room patient was resuscitated with IV fluids, started on heparin drip, as well as aspirin and Protonix Cardiology and pulmonary team consulted Patient current PEEP stent, FiO2 of 55%, she is on heparin drip, monitor showing sinus rhythm at 60/m. Neely catheter in place with yellow urine. No NG tube in place Chest x-ray: Improving bilateral lung infiltrates, small bilateral pleural eff usions 06/09/2021 Patient remains in the ICU, during the morning rounds she was still intubated and on mechanical ventilation however through the day she got extubated and placed on high flow nasal cannula with 60 liter per minute and FiO2 of 90%. Chest x-ray showing bilateral multifocal edema versus infiltrate. WBCs 14.3, hemoglobin dropped 13 down to 11.1. Creatinine went up 1.3-1.5, lactic acid still elevated 2.9, liver enzymes moderately elevated around 300s. Also patient had low-grade fever today of 100.4. Portcalcitonin elevated at 8.3, sputum cultures pending Patient has multiple ALLERGIES which limits his antibiotic use, however she started on Zosyn. Also she is on heparin drip and amiodarone drip her mortgage broker who followed the patient closely nephrology and pulmonology input is appreciated. And they monitor the patient closely 06/11/2021 Patient this morning was on BiPAP, still tired, she could not participate in the encounter because she received morphine and she was resting comfortably with moderate respiratory distress. Family at bedside, discussed with them the problems and management plan as well as prognosis, they understand that pneumonia is treatable and reversible however patient remains critically all because of her hypoxia and all other medical problems and heart disease. They preferred to continue treatment in the morning however later on during the day she started becoming more hypoxic and oxygen saturation was in 70s and family decided to proceed with comfort care. Patient the same day, please refer to long term for more details Patient Condition at Discharge: Critical Plan - Discharge Summary New Discharge Prescriptions: No Action Insulin Glargine [Lantus] 50 units SQ DAILY Furosemide [Lasix] 40 mg PO DAILY Colesevelam [Welchol] 1,250 mg PO BID Cyanocobalamin [Vitamin B-12 Injection] 1,000 mcg IM Q30D Insulin Aspart [NovoLOG Flexpen] 20 unit SQ TID-W/MEALS amLODIPine [Norvasc] 5 mg PO DAILY Ergocalciferol (Vitamin D2) [Drisdol (50,000 Iu)] 1,250 mcg PO Q7D Discharge Medication List Colesevelam [Welchol] 1,250 mg PO BID 10/13/13 [History] Furosemide [Lasix] 40 mg PO DAILY 10/13/13 [History] Insulin Glargine [Lantus] 50 units SQ DAILY 10/13/13 [History] Cyanocobalamin [Vitamin B-12 Injection] 1,000 mcg IM Q30D 09/28/15 [History] Ergocalciferol (Vitamin D2) [Drisdol (50,000 Iu)] 1,250 mcg PO Q7D 06/07/21 [History] Insulin Aspart [NovoLOG Flexpen] 20 unit SQ TID-W/MEALS 06/07/21 [History] amLODIPine [Norvasc] 5 mg PO DAILY 06/08/21 [History] Follow up Appointment(s)/Referral(s): Brandon Brown III, MD [Primary Care Provider] - 1-2 days Discharge Disposition: - Preliminary Cause of Preliminary Cause of : pneumonia, NSTEMI, resp failure
== END 2021-06-10 12:36 | disposition expired ==
LOC: EC 22:07 → 2SICU 06-08 00:02
PROVIDERS: ADMIT Hospitalist; ATTEND Hospitalist
PROC: 0BH17EZ Insertion of Endotracheal Airway into Trachea, Via Natural or Artificial Opening (ICD-10-PCS; principal; 2021-06-08)
PROC: 5A1935Z Respiratory Ventilation, Less than 24 Consecutive Hours (ICD-10-PCS; principal; 2021-06-08)
PROC: 3E0336Z Introduction of Nutritional Substance into Peripheral Vein, Percutaneous Approach (ICD-10-PCS; 2021-06-08)
DX: I21.4 Non-ST elevation (NSTEMI) myocardial infarction (principal); J18.9 Pneumonia, unspecified organism; J80 Acute respiratory distress syndrome; N17.0 Acute kidney failure with tubular necrosis; I50.23 Acute on chronic systolic (congestive) heart failure; E10.10 Type 1 diabetes mellitus with ketoacidosis without coma; I42.9 Cardiomyopathy, unspecified; I46.2 Cardiac arrest due to underlying cardiac condition; R00.1 Bradycardia, unspecified; I11.0 Hypertensive heart disease with heart failure; I25.10 Atherosclerotic heart disease of native coronary artery without angina pectoris; I48.0 Paroxysmal atrial fibrillation; Z51.5 Encounter for palliative care; Z66 Do not resuscitate; I95.9 Hypotension, unspecified; I08.3 Combined rheumatic disorders of mitral, aortic and tricuspid valves; I27.20 Pulmonary hypertension, unspecified; E78.5 Hyperlipidemia, unspecified; E87.5 Hyperkalemia; Z79.4 Long term (current) use of insulin; Z79.899 Other long term (current) drug therapy; Z86.73 Personal history of transient ischemic attack (TIA), and cerebral infarction without residual deficits; Z95.1 Presence of aortocoronary bypass graft; Z88.8 Allergy status to other drugs, medicaments and biological substances; Z88.1 Allergy status to other antibiotic agents; Z88.2 Allergy status to sulfonamides
CPT/HCPCS: 36415; 36600; 71045; 80048; 80053; 81001; 82805; 83036; 83605; 83735; 83880; 84100; 84145; 84484; 85025; 85610; 85730; 87070; 87205; 93005; 93306; 94002; 94003; 94640; 94660; 96361; 96374; 96375; 99291